=== PATIENT | female | born 1965 | race Caucasian/White ===

== ENCOUNTER 2017-04-16 18:56 | Emergency (ER) | payer OTHER ==
[2017-04-16 19:02] VITALS: BP 140/73
[2017-04-16] MEDS ORDERED: HYDROcod/ACETAM 5/325 MG TABLET PO STA (19:24)
--- NOTE | 2017-04-16 19:26 | ED Physician Documentation ---
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 She has no history of issues with that shoulder before. No other injuries.) Review of Systems Constitutional: reports: Reviewed and negative Nose: reports: Reviewed and negative Cardiac: reports: Reviewed and negative PD PAST MEDICAL HISTORY - Past Medical History Past Medical History: No - Past Surgical History Past Surgical History: No - Present Medications Home Medications: Ambulatory Orders Medication Instructions Recorded Confirmed HYDROcod/ACETAM 5/325 [Tamiment 5/325] 1 - 2 ea PO Q6H PRN #15 tablet 04/16/17 - Allergies Allergies/Adverse Reactions: Allergies Allergy/AdvReac Type Severity Reaction Status Date / Time codeine Allergy Unknown Verified 04/16/17 19:02 - Social History Does the pt smoke?: No Smoking Status: Never smoker Does the pt drink ETOH?: Yes Does the pt have substance abuse?: No - POLST Patient has POLST: No PD ED PE NORMAL - Vitals Vital signs reviewed: Yes - General General: Alert and oriented X 3, No acute distress - Neck Neck: Supple, no meningeal sign, No bony TTP - Extremities Extremities: Other (Right shoulder is mildly tender posteriorly and over the top , she is able to abduct to 90 actively, no better passively.) - Neuro Neuro: Alert and oriented X 3, Normal speech - Psych Psych: Normal mood, Normal affect Results - Vitals Vitals: Vital Signs - 24 hr 04/16/17 18:59 Temperature 36.4 C L Heart Rate 83 Respiratory 18 Rate Blood Pressure 140/73 H O2 Saturation 99 Oxygen O2 Source Room air - Rads (name of study) 3v R shoulder Radiology: EMP read contemporaneously (normal) Departure - Departure Disposition: 01 Home, Self Care Clinical Impression: Contusion of right shoulder Qualifiers: Encounter type: initial encounter Qualified Code(s): S40.011A - Contusion of right shoulder, initial encounter Condition: Good Record reviewed to determine appropriate education?: Yes Instructions: ED Sprain Shoulder Follow-Up: [facility] [Provider Group] - Within 1 week Prescriptions: HYDROcod/ACETAM 5/325 [Tamiment 5/325] 1 - 2 ea PO Q6H PRN #15 tablet PRN Reason: Pain Comments: Your blood pressure was elevated today on check into the emergency department. This does not mean that you have hypertension, it is a common phenomenon to come to the emergency department and have elevated blood pressure. I recommend that you see your primary care physician within the week to have it rechecked when you are feeling better. Do not drink or drive while taking narcotic pain medication. Note that many narcotic pain relievers also contain Tylenol/acetaminophen. Please ensure that your total dose of acetaminophen from all sources does not exceed 3 g (3000 mg) per day. You may get constipated while on this medication. Take a stool softener such as Colace twice a day while you are on it. Also add an nrmo-pow-[id number] laxative such as senna or MiraLAX on any day that you do not have a bowel movement. If you received a narcotic pain medication or sedative while in the emergency department, do not drive for the next 24 hours. Forms: Activity restrictions Discharge Date/Time: 04/16/17 19:56
--- NOTE | 2017-04-16 20:05 | XRAY Report ---
EXAM: RIGHT SHOULDER RADIOGRAPHY EXAM DATE: 04/16/2017 07:41 PM. CLINICAL HISTORY: Fall into door. Right shoulder pain. COMPARISON: None. TECHNIQUE: 3 views. FINDINGS: Bones: Old fifth rib fracture noted. No acute fractures identified. Joints: The glenohumeral and acromioclavicular joints are normal. Soft tissues: The visualized hemithorax is unremarkable. No soft tissue swelling. IMPRESSION: Normal shoulder radiography. [facility] Referring Provider Line: [phone] SITE ID: [id number]
== END 2017-04-16 19:56 | disposition home or self-care (01) ==
LOC: ED 18:56
DX: S40.011A Contusion of right shoulder, initial encounter (principal); X50.9XXA Other and unspecified overexertion or strenuous movements or postures, initial encounter; Y99.0 Civilian activity done for income or pay; R03.0 Elevated blood-pressure reading, without diagnosis of hypertension
CPT/HCPCS: 1040M; 73030; 99283; A9270

== ENCOUNTER 2017-05-02 09:10 | Emergency (ER) | payer OTHER ==
[2017-05-02] MEDS ORDERED: KETOROLAC 60 MG/2 ML VIAL IM STA (10:01)
[2017-05-02] MEDS ORDERED: LIDOCAINE PATCH 5% TOP STA (10:01)
[2017-05-02] MEDS ORDERED: DEXAMETHASONE 10 MG/ML VIAL PO STA (10:01)
--- NOTE | 2017-05-02 10:06 | ED Physician Documentation ---
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 hurting R shoulder seen in ER and had neg shoulder xrays dx shoulder sprain referred to ortho josi feels maybe a rotator cuff injury and awaiting L&I approval for MRI to ER today for acute worsening of R shoulder pain rad to R scapula / posterior rib region and burning throbbing pain down right arm to 3rd and 4th finger no fever cough CP abd pain (diff than her usual IBS discomfort) Review of Systems Constitutional: denies: Fever, Chills Cardiac: denies: Chest pain / pressure Respiratory: denies: Cough GI: denies: Abdominal Pain, Nausea, Vomiting Musculoskeletal: reports: Extremity pain, Joint pain Neurologic: denies: Focal weakness, Numbness Endocrine: denies: Easy bruising / bleeding Immunocompromised: denies: Immunocompromised PD PAST MEDICAL HISTORY - Past Surgical History Past Surgical History: No - Present Medications Home Medications: Ambulatory Orders Medication Instructions Recorded Confirmed Lidocaine Patch 5% [Lidoderm Patch] 1 each TOP DAILY PRN #10 patch 05/02/17 predniSONE [Deltasone] 20 mg PO [id number] #21 tab 05/02/17 - Allergies Allergies/Adverse Reactions: Allergies Allergy/AdvReac Type Severity Reaction Status Date / Time codeine Allergy Unknown Verified 05/02/17 09:22 - Social History Does the pt smoke?: No Smoking Status: Never smoker Does the pt drink ETOH?: Yes Does the pt have substance abuse?: No - POLST Patient has POLST: No PD ED PE NORMAL - Vitals Vital signs reviewed: Yes - General General: Alert and oriented X 3 - HEENT HEENT: PERRL - Neck Neck: Supple, no meningeal sign - Cardiac Cardiac: RRR - Respiratory Respiratory: No respiratory distress, Clear bilaterally - Abdomen Abdomen: Soft, Non tender - Extremities Extremities: Other (TTP R trap region with mm spasm and limited ROM, no shingles rash, tender to palapate entire shoulder, pain with ROM as well, MSV intact - see neuro exam) - Neuro Neuro: Alert and oriented X 3, No motor deficit, No sensory deficit, Other ( bicpe tricep OK thumbs up manager cost finger ABD wrist ext all intact but moise finger ABD and wrist ext aggrevate the pain down her arm, ) Results - Vitals Vitals: Vital Signs - 24 hr 05/02/17 05/02/17 09:18 10:56 Temperature 37.1 C 36.8 C Heart Rate 81 75 Respiratory 18 20 Rate Blood Pressure 156/68 H 129/68 O2 Saturation 100 100 Oxygen O2 Source Room air - Rads (name of study) cxr Radiology: See rad report (healed R 6th rib fx (where pt is tender) LLL atelectais) cspine Radiology: See rad report (mod degen changes scoliosis C7T1) Departure - Departure Disposition: 01 Home, Self Care Clinical Impression: Radiculopathy affecting upper extremity Rib fracture Qualifiers: Encounter type: initial encounter Rib fracture type: single rib Fracture type: closed Laterality: right Qualified Code(s): S22.31XA - Fracture of one rib, right side, initial encounter for closed fracture Condition: Good Instructions: ED Fx Rib, ED Cervical Radiculopathy Follow-Up: [facility] [Provider Group] (for continued care) Prescriptions: Lidocaine Patch 5% [Lidoderm Patch] 1 each TOP DAILY PRN #10 patch PRN Reason: Pain predniSONE [Deltasone] 20 mg PO [id number] #21 tab Comments: The pain down your arm is likely from a pinched nerve - could be pinched in your neck or more likely as it course through the shoulder If the pain down your arm persists a MRI would be very useful so hopefully L&I will approve it It also looks like you may have broken a rib when you fell - right rub number 6 - but it has healed I have prescribed medications to ease your pain. Even if it hurts you need to take several big breaths every hour to fill your lungs with fresh air and prevent collapse or infection The steroids are to ease the nerve pain The lidocaine patch is for your back. You can also take one or two extra strength tylenol every 8 hours - don't take every day for more than a week
--- NOTE | 2017-05-02 11:10 | XRAY Report ---
EXAM: CHEST RADIOGRAPHY EXAM DATE: 05/02/2017 10:26 AM. CLINICAL HISTORY: Right posterior rib pain. COMPARISON: None. TECHNIQUE: 2 views. FINDINGS: Lungs/Pleura: Elongated left lower lobe opacity. No pneumothorax or pleural effusion. Mediastinum: Heart and mediastinal contours are unremarkable. Other: Old healed left sixth rib fracture. No displaced right rib fracture evident. Mild scoliosis. Gallbladder fossa surgical clips. IMPRESSION: 1. Left lower lobe atelectasis. 2. Old, healed left sixth rib fracture. [facility] Referring Provider Line: [phone] SITE ID: [id number]
--- NOTE | 2017-05-02 11:13 | XRAY Report ---
EXAM: CERVICAL SPINE RADIOGRAPHY EXAM DATE: 05/02/2017 10:26 AM. CLINICAL HISTORY: R arm radiculopathy. Fall at work 04/16/2017. COMPARISONS: None. TECHNIQUE: 3 views. FINDINGS: Alignment: 9 degree convex right cervicothoracic scoliosis. Straightening of normal cervical lordosis with mild upper cervical kyphosis. Bones: The cervical vertebral bodies and posterior elements are well visualized from the skull base t hrough C6-C7. C7-T1 level not well demonstrated due to patient's shoulders. No fractures or bone lesions. Disks: Moderate loss of disk space height at C3-C4 through C6-C7 levels. Facets: Normally aligned. Soft Tissues: Probable tortuous thoracic aorta. IMPRESSION: 1. Moderate cervical spine degenerative changes. 2. Scoliosis. 3. C7-T1 level not well demonstrated due to patient's shoulders. Consider swimmer's view. [facility] Referring Provider Line: [phone] SITE ID: [id number]
[2017-05-02] MEDS ORDERED: oxyCODONE 5 MG TABLET PO STA (12:23)
[2017-05-02 12:24] VITALS: BP 131/82
== END 2017-05-02 12:17 | disposition home or self-care (01) ==
LOC: ED 09:10
DX: M54.12 Radiculopathy, cervical region (principal); S22.31XA Fracture of one rib, right side, initial encounter for closed fracture; W18.39XA Other fall on same level, initial encounter; Y99.0 Civilian activity done for income or pay
CPT/HCPCS: 71046; 72040; 96372; 99283; A9270

== ENCOUNTER 2017-05-18 15:05 | Outpatient (CLI) | payer OTHER ==
--- NOTE | 2017-05-18 22:30 | MRI Preliminary Report ---
Exam: MRI SHOULDER RT W/O IMPRESSION: 1. Moderate supraspinatus tendinopathy with full thickness partial with tear extending obliquely thro ugh the central and posterior fibers. 2. Mild infraspinatus tendinopathy with minimal partial thickness intrasubstance tearing. 3. Mild subscapularis atrophy. 4. Degenerative fraying posterior superior labrum. 5. Mild subacromial subdeltoid bursitis. 6. Mild to moderate acromioclavicular degenerative change. Osteophytes may contribute to symptoms of impingement. [facility] MUSCULOSKELETAL RADIOLOGY SECTION SITE ID: [id number]
--- NOTE | 2017-05-20 10:25 | MRI Report ---
EXAM: RIGHT SHOULDER MRI WITHOUT CONTRAST EXAM DATE: 05/18/2017 04:04 PM. CLINICAL HISTORY: Right shoulder pain. COMPARISON: Radiographs 04/16/2017. TECHNIQUE: Multiplanar, multisequence T1-weighted and fluid-sensitive sequences of the shoulder witho ut contrast. Other: None. FINDINGS: Acromioclavicular Region: The acromion is type II. Mild to moderate degenerative change at the joint. Inferiorly directed osteophytes result in mass effect on the supraspinatus myotendinous junction. Th e coracoacromial and coracoclavicular ligaments are intact. Mild subacromial/subdeltoid bursal fluid. Glenohumeral Region: No subluxation. No effusion or loose bodies. Shallow partial-thickness cartilage loss. The glenohumeral ligaments and joint capsule are unremarkable. Bone Marrow: No fracture. A 0.7 cm T1 hypointense and fluid sensitive hyperintense focus present in t he proximal aspect humeral diaphysis. No adjacent bone marrow edema. This may be due to a benign shannan ngioma or enchondroma. Labrum: Degenerative fraying posterosuperior aspect. No discrete fluid-filled tear visualized on this non-arthrographic study. Musculature/Rotator Cuff: Moderate supraspinatus tendinopathy with bursal surface fraying. Full-thick ness partial width tear extends obliquely from the insertion of the central fibers to the myotendinou s junction at the posterior fibers. This involves a region measuring 1.9 x 1.8 cm. Mild infraspinatus tendinopathy with bursal surface fraying and subtle partial thickness intrasubstan ce tearing at the insertion of the anterior and central fibers. Teres minor tendon is intact. Mild subscapularis tendinopathy. No fatty atrophy. Minimal edema at the supraspinatus myotendinous junction. Biceps Tendon: The long head of the biceps tendon and biceps sam are intact. Other: The subcutaneous tissues are unremarkable. IMPRESSION: 1. Moderate supraspinatus tendinopathy with full thickness partial width tear extending obliquely thr ough the central and posterior fibers. 2. Mild infraspinatus tendinopathy with minimal partial thickness intrasubstance tearing. 3. Mild subscapularis tendinopathy. 4. Degenerative fraying posterosuperior labrum. 5. Mild subacromial-subdeltoid bursitis. 6. Mild to moderate acromioclavicular degenerative change. Osteophytes may contribute to symptoms of impingement. [facility] MUSCULOSKELETAL RADIOLOGY SECTION Referring Provider Line: [phone] SITE ID: [id number]
== END 2017-05-18 15:06 | disposition home or self-care (01) ==
LOC: DI 15:05
PROVIDERS: ATTEND Orthopaedic Surgery
DX: M75.101 Unspecified rotator cuff tear or rupture of right shoulder, not specified as traumatic (principal); M75.51 Bursitis of right shoulder; M19.011 Primary osteoarthritis, right shoulder

== ENCOUNTER 2017-08-20 06:08 | Day surgery (SDC) | payer OTHER ==
[2017-08-20] MEDS ORDERED: ACETAMINOPHEN 1,000 MG/100 ML 100 ML IV ONE (06:36)
[2017-08-20] MEDS ORDERED: ceFAZolin 2 GM/50 ML 2 GM/50 ML BAG IV ONE (06:36)
[2017-08-20] MEDS ORDERED: CELECOXIB 100 MG CAPSULE PO ONE (06:38)
[2017-08-20 06:57] LABS: HCG UR QUAL NEGATIVE
[2017-08-20] MEDS ORDERED: LACTATED RINGERS 1,000 ML IV ONE ×2 (07:23→10:05)
[2017-08-20] MEDS ORDERED: BUPIVACAINE 0.5% PF 30 ML VIAL ONE (08:08)
[2017-08-20] MEDS ORDERED: LIDOCAINE 1%-EPI 1:100000 30 ML MDV ONE (08:09)
[2017-08-20] MEDS ORDERED: EPINEPHrine 1 MG/ML AMP ONE (08:09)
[2017-08-20] MEDS ORDERED: MIDAZOLAM 2 MG/2 ML VIAL IVP ONE (08:30)
[2017-08-20] MEDS ORDERED: ONDANSETRON 4 MG/2 ML VIAL IVP ONE (08:30)
[2017-08-20] MEDS ORDERED: ePHEDrine 50 MG/ML AMP IVP ONE (08:30)
[2017-08-20] MEDS ORDERED: SUCCINYLCHOLINE 200 MG/10 ML VIAL IVP ONE (08:30)
[2017-08-20] MEDS ORDERED: fentaNYL 250 MCG/5 ML VIAL IVP ONE (08:30)
[2017-08-20] MEDS ORDERED: SODIUM CHLORIDE 0.9% 10 ML VIAL IV ONE (08:30)
[2017-08-20] MEDS ORDERED: KETOROLAC 30 MG/ML VIAL IVP ONE (08:30)
[2017-08-20] MEDS ORDERED: PHENYLEPHRINE 10 MG/ML VIAL IV ONE (08:30)
[2017-08-20] MEDS ORDERED: LIDOCAINE 2% 50 ML MDV IV ONE (08:30)
[2017-08-20] MEDS ORDERED: DEXAMETHASONE 4 MG/ML VIAL IVP ONE (08:30)
[2017-08-20] MEDS ORDERED: PROPOFOL 200 MG/20 ML VIAL IVP ONE (08:30)
[2017-08-20] MEDS ORDERED: ROCURONIUM 50 MG/5 ML VIAL IVP ONE (08:30)
[2017-08-20] MEDS ORDERED: LIDOCAINE 1%-EPI 1:100000 20 ML MDV SUBQ ONE ×2 (08:47)
[2017-08-20] MEDS ORDERED: BUPIVACAINE 0.5% PF 30 ML VIAL INFIL ONE ×2 (08:48)
[2017-08-20] MEDS ORDERED: HYDROmorphone 1 MG/ML CARPUJECT ONE (10:42)
[2017-08-20] MEDS: fentaNYL 100 MCG/2 ML VIAL ONE ×3 (10:59→11:17)
[2017-08-20] MEDS ORDERED: ONDANSETRON 4 MG/2 ML VIAL ONE (11:04)
[2017-08-20] MEDS ORDERED: oxyCOD/ACETAMIN 5 MG/325 MG TABLET PO ONE (12:55)
[2017-08-20 13:15] VITALS: BP 122/66
--- NOTE | 2017-08-20 18:48 | OPERATIVE REPORT ---
DATE OF SERVICE: 08/20/2017 Physician: Myra Mix MD DATE OF SURGERY: 08/20/2017. PREOPERATIVE DIAGNOSIS: Right shoulder rotator cuff tear and impingement syndrome. POSTOPERATIVE DIAGNOSIS: Right shoulder rotator cuff tear and impingement syndrome. PROCEDURE PERFORMED: Right shoulder exam under anesthesia, arthroscopy, subacromial decompression, mini open rotator cuff repair. OPERATING SURGEON: Myra Mix M.D. ANESTHESIA: General and interscalene block by [place]. INDICATIONS FOR SURGERY: The patient is a 51-year-old female with a painful right shoulder post injury and a documented rotator cuff injury with suspected full-thickness tear. She has failed nonoperative treatment. Recommendation is for surgical treatment and repair. FINDINGS AT SURGERY: The patient's exam under anesthesia was unremarkable. Her arthroscopic exam revealed a full-thickness tear involving the complete extent of the supraspinatus insertion. The glenohumeral surfaces were intact, the biceps tendon normal, subscapularis intact, the remaining rotator cuff intact. DESCRIPTION OF OPERATIVE PROCEDURE: The patient was taken to the operating room, given a general anesthetic and an interscalene block. She was positioned in beach chair. The shoulder was isolated with drapes and sterilely prepped and draped in standard fashion. After surgical timeout, the patient's arthroscopy was undertaken using a posterior acromial portal performing a complete inspection of the glenohumeral joint and then introducing a separate shaver from an anterior portal established with a scalpel incision of skin only and insertion of a blunt obturator into the shoulder, followed by the shaver and debridement of the undersurface of the rotator cuff. The extent of the tear was defined and the footprint of the rotator cuff insertion was debrided down to bleeding bone. A subacromial decompression was performed after inserting the scope in the subacromial space and utilizing the shaver to decompress the space and expose the bursal side of the cuff tear. Following this, the instruments were withdrawn. A small 5 cm incision was made based on the anterior aspect of the acromion, taken through skin and subcutaneous tissue, exposing the anterior acromion, resecting the anterior aspect of the acromion and performing a decompression with a rasp, after which the rotator cuff tear was mobilized and freed of bursal tissues, the footprint prepared and a 2-row repair was undertaken using Fastin anchors at the junction of the articular cartilage. A single Fastin anchor was placed and then on the lateral aspect of the humerus placing 2 Versalok anchors and locking down in a mattress fashion and recreating a double row repair with very good apposition of tissue to bone. Following this, the area was flushed and closure was with FiberWire repair of anterior deltoid, Vicryl repair of subcutaneous tissue, and Monocryl closure of skin. Sterile dressings were applied. The patient was placed in a sling and taken to the recovery room in stable condition. ESTIMATED BLOOD LOSS: Minimal. COMPLICATIONS: None. SPONGE AND NEEDLE COUNTS: Correct. TD: 08/20/2017 13:57
== END 2017-08-20 06:09 | disposition home or self-care (01) ==
LOC: SDS 06:08
PROVIDERS: ATTEND Orthopaedic Surgery
PROC: 0RBJ4ZZ Excision of Right Shoulder Joint, Percutaneous Endoscopic Approach (ICD-10-PCS; principal; 2017-08-20 07:30)
PROC: 0LQ10ZZ Repair Right Shoulder Tendon, Open Approach (ICD-10-PCS; 2017-08-20 07:30)
DX: S46.011A Strain of muscle(s) and tendon(s) of the rotator cuff of right shoulder, initial encounter (principal); M75.41 Impingement syndrome of right shoulder
CPT/HCPCS: 23412; 29822; 81025; A9270; C1713; J0131; J0330; J0690; J1170; J3010; J7120

== ENCOUNTER 2018-02-13 09:17 | Emergency (ER) | payer MEDICAID ==
--- NOTE | 2018-02-13 09:47 | ED Physician Documentation ---
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 she started having pain across her upper chest last night - worse with palpation and any movement but also with nausea and SO now paininto upper back as well minimal abd pain no fever no cough no leg swelling no recent travel non smoker fhx CAD but she has no HTN HLD DM or known CAD at age 38 she had a neg cardiac work up Review of Systems Constitutional: denies: Fever Cardiac: reports: Chest pain / pressure Respiratory: reports: Dyspnea GI: reports: Nausea Musculoskeletal: reports: Back pain Neurologic: denies: Focal weakness, Numbness Endocrine: denies: Easy bruising / bleeding Immunocompromised: denies: Immunocompromised PD PAST MEDICAL HISTORY - Past Medical History Cardiovascular: Murmur Respiratory: None Endocrine/Autoimmune: None GI: None HEENT: None Psych: Anxiety Musculoskeletal: Osteoarthritis, Other Derm: None - Past Surgical History Past Surgical History: No 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 CLIENT SERVICES: Tubal ligation HEENT: Tonsil/Adenoidectomy, Other - Present Medications Home Medications: Ambulatory Orders Medication Instructions Recorded Confirmed Lidocaine Patch 5% [Lidoderm Patch] 1 each TOP DAILY PRN #10 patch 05/02/17 predniSONE [Deltasone] 20 mg PO [id number] #21 tab 05/02/17 Cyclobenzaprine [Flexeril] 10 mg PO TID PRN #20 tablet 02/13/18 Indomethacin [Indocin] 25 mg PO BIDWM PRN #20 capsule 02/13/18 Lidocaine Patch 5% [Lidoderm Patch] 1 patch TOP DAILY PRN #10 patch 02/13/18 - Allergies Allergies/Adverse Reactions: Allergies Allergy/AdvReac Type Severity Reaction Status Date / Time codeine Allergy Unknown Verified 02/13/18 09:26 - Social History Does the pt smoke?: No Smoking Status: Never smoker Does the pt drink ETOH?: Yes Does the pt have substance abuse?: No - Immunizations Immunizations are current?: Yes - POLST Patient has POLST: No PD ED PE NORMAL - Vitals Vital signs reviewed: Yes - General General: Alert and oriented X 3, Other (anxious holding her chest) - Neck Neck: Supple, no meningeal sign - Cardiac Cardiac: RRR, No murmur, Other (very TTP anterior chest wall, no crepitus or rash) - Respiratory Respiratory: No respiratory distress, Clear bilaterally - Abdomen Abdomen: Soft, Non tender, Other (no pulsatile mass) - Back Back: Other (TTP upper back, hurts to move, no rash) - Derm Derm: Normal color - Extremities Extremities: No deformity, No edema, No calf tenderness / cord - Neuro Neuro: Alert and oriented X 3 Eye Opening: Spontaneous Motor: Obeys Commands Verbal: Oriented GCS Score: 15 Results - Vitals Vitals: Vital Signs - 24 hr 02/13/18 02/13/18 02/13/18 09:24 10:33 10:34 Temperature 37.0 C Heart Rate 90 87 83 Respiratory 16 22 17 Rate Blood Pressure 152/78 H 129/58 L 136/80 H O2 Saturation 100 98 100 Oxygen O2 Source Room air - EKG (time done) 0932 Rate: Rate (enter#) (90) Rhythm: NSR Intervals: Normal [place], QRS normal. No: Prolonged QT QRS: Poor R wave progression Ischemia: Non specific changes (inferior) - Labs Labs: Laboratory Tests 02/13/18 02/13/18 02/13/18 09:30 09:30 09:30 WBC 4.7 L RBC 4.80 Hgb 14.6 Hct 42.5 MCV 88.6 MCH 30.4 MCHC 34.4 RDW 13.0 Plt Count 356 MPV 7.2 L Neut # (Auto) 1.8 Lymph # (Auto) 1.9 [place] # (Auto) 0.8 Eos # (Auto) 0.1 Baso # (Auto) 0.0 Absolute Nucleated RBC 0.00 Nucleated RBC % 0.0 Sodium 139 Potassium 3.7 Chloride 104 Carbon Dioxide 26 Anion Gap 9.0 BUN 7 Creatinine 0.8 Estimated GFR (MDRD) 75 L Glucose 103 H Calcium 9.7 Total Bilirubin 0.8 AST 21 ALT 17 Alkaline Phosphatase 71 Troponin I < 0.04 Total Protein 8.2 Albumin 4.7 Globulin 3.5 Albumin/Globulin Ratio 1.3 Lipase 27 PD MEDICAL DECISION MAKING - ED course ED course: BP R 136/80 BP L 129/88 CXR no acute process - aortic knob is tight and no cap or effusion EKG s ischemia neg trop after sx all night no risk factors for PE and no lg swelling based on hx and exam and work up feel ACS PE dissection unlikely pt very tender to palpate and just increased her work so likely muscular will dc Departure - Departure Disposition: 01 Home, Self Care Clinical Impression: Chest wall pain Condition: Good Instructions: ED Strain Chest Wall Prescriptions: Cyclobenzaprine [Flexeril] 10 mg PO TID PRN #20 tablet PRN Reason: Spasms Indomethacin [Indocin] 25 mg PO BIDWM PRN #20 capsule PRN Reason: Pain Lidocaine Patch 5% [Lidoderm Patch] 1 patch TOP DAILY PRN #10 patch PRN Reason: pain Comments: The tests were all very reassuring - based on the history, the exam, the EKG, the xray and the blood work it does not seem you have a heart attack, an aneurysm, a blood clot in your lung or a collapsed lung So I think it is safe for you to go home and I have prescribed several medications to help ease your symptoms Forms: Activity restrictions
[2018-02-13] MEDS ORDERED: KETOROLAC 60 MG/2 ML VIAL IVP STA (09:54)
[2018-02-13 10:00] LABS: BASOPHILS % (AUTO) 0.9 %; EOSINOPHILS # (AUTO) 0.1 10^3/uL (0.0-0.7); EOSINOPHILS % (AUTO) 2.1 %; HGB - HEMOGLOBIN 14.6 g/dL (12.0-16.0); LYMPHOCYTES # (AUTO) 1.9 10^3/uL (1.5-3.5); LYMPHOCYTES % (AUTO) 40.3 %; MEAN CORPUSCULAR HEMOGLOBIN 30.4 pg (27.0-31.0); MEAN CORPUSCULAR HGB CONC 34.4 g/dL (32.0-36.0); MEAN CORPUSCULAR VOLUME 88.6 fL (81.0-99.0); MEAN PLATELET VOLUME 7.2 fL (7.9-10.8); MONOCYTES # (AUTO) 0.8 10^3/uL (0.0-1.0); MONOCYTES % (AUTO) 17.8 %; NEUTROPHILS # (AUTO) 1.8 10^3/uL (1.5-6.6); NEUTROPHILS % (AUTO) 38.9 %; PLT - PLATELET COUNT 356 10^3/uL (130-450); WHITE BLOOD COUNT 4.7 x10^3/uL (4.8-10.8)
[2018-02-13 10:09] LABS: ALBUMIN 4.7 g/dL (3.2-5.5); ALBUMIN/GLOBULIN RATIO 1.3 (1.0-2.2); BILIRUBIN,TOTAL 0.8 mg/dL (0.2-1.0); CALCIUM 9.7 mg/dL (8.5-10.3); CREATININE 0.8 mg/dL (0.4-1.0); TOTAL PROTEIN 8.2 g/dL (6.7-8.2)
--- NOTE | 2018-02-13 10:23 | XRAY Report ---
Reason: cp Procedure Date: 02/13/2018 Accession Number: [id number] / [id number] Procedure: XR - Chest 2 View X-Ray CPT Code: 09648 FULL RESULT: EXAM: CHEST RADIOGRAPHY EXAM DATE: 02/13/2018 10:04 AM. CLINICAL HISTORY: Chest pain COMPARISON: CHEST 2 VIEW 05/02/2017 10:03 AM. TECHNIQUE: 2 views. FINDINGS: Lungs/Pleura: Mild bibasal opacity, may reflect atelectasis or scarring. No significant pleural effusion or evidence of pneumothorax. Mediastinum: Heart and mediastinal contours are unremarkable. Other: Old healed left sixth rib fracture. Suture anchors at the right humeral head. Right upper quadrant surgical clips. Mild scoliosis. IMPRESSION: No definite acute cardiopulmonary abnormality. Mild bibasal opacity, may reflect atelectasis or scarring. [facility]
[2018-02-13] MEDS ORDERED: LIDOCAINE PATCH 5% TOP STA (10:49)
[2018-02-13] MEDS ORDERED: oxyCODONE 5 MG TABLET PO STA (10:49)
[2018-02-13 11:23] VITALS: BP 130/85
== END 2018-02-13 11:23 | disposition home or self-care (01) ==
LOC: ED 09:17
DX: R07.89 Other chest pain (principal)
CPT/HCPCS: 36415; 71046; 80053; 83690; 84484; 85025; 93005; 96374; 99283; 99284; A9270

== ENCOUNTER 2018-03-10 14:47 | Outpatient (CLI) | payer MEDICAID ==
--- NOTE | 2018-03-12 09:13 | Mammography Report ---
Reason: SCREENING MAMMOGRAM FOR BREAST CANCER Procedure Date: 03/10/2018 Accession Number: [id number] / [id number] Procedure: MGN - Screening Mammo Dig Bilat CPT Code: FULL RESULT: EXAM: Screening Mammo Dig Bilat DATE: 03/10/2018 3:06 PM CLINICAL HISTORY: Screening. No reported personal or family history of breast cancer. TECHNIQUE: Bilateral CC and MLO views were obtained. COMPARISON: Baseline exam. FINDINGS: The breasts demonstrate diffuse fatty replacement bilaterally. Bilateral breasts: There are no suspicious masses, calcifications or areas of distortion. IMPRESSION: Negative examination RECOMMENDATION: Routine annual screening unless otherwise clinically indicated. BI-RADS CATEGORY 1: Negative STANDARD QUALIFYING STATEMENTS: 1. This examination was reviewed with the aid of Computer-Aided Detection (CAD). 2. A negative or benign imaging report should not preclude biopsy if clinically suspicious findings are present. 3. Dense breasts may obscure an underlying neoplasm. 4. This examination was reviewed without the aid of 3D breast imaging (tomosynthesis).
== END 2018-03-10 14:48 | disposition home or self-care (01) ==
LOC: DI.N 14:47
PROVIDERS: ATTEND Physician Assistant Medical
DX: Z12.31 Encounter for screening mammogram for malignant neoplasm of breast (principal)
CPT/HCPCS: 77067

== ENCOUNTER 2018-05-19 18:55 | Emergency (ER) | payer MEDICAID ==
[2018-05-19] MEDS ORDERED: oxyCODONE 5 MG TABLET PO STA (19:21)
[2018-05-19] MEDS ORDERED: GABAPENTIN 100 MG CAPSULE PO STA (19:21)
--- NOTE | 2018-05-19 19:24 | ED Physician Documentation ---
History of Present Illness - Stated complaint Stated Complaint: BK PX - Chief complaint Chief Complaint: Ext Problem - History obtained from History obtained from: Patient - History of Present Illness Timing: Other (This is a 52-year-old woman whose been having ongoing problems with the right shoulder due to a work-related incident. She had what sounds like may be a SLAP repair and then after that found to have recurrent issues based on I MRI. Since then she has had progressive pain of the clavicles, upper back, neck, left shoulder. At the age of 20 she was diagnosed with fibromyalgia but there was no subsequent diagnosis of that. Pain is worsening, its diffuse.) Review of Systems Constitutional: reports: Fatigue. 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: Tubal ligation HEENT: Tonsil/Adenoidectomy, Other - Present Medications Home Medications: Ambulatory Orders Medication Instructions Recorded Confirmed Lidocaine Patch 5% [Lidoderm Patch] 1 each TOP DAILY PRN #10 patch 05/02/17 predniSONE [Deltasone] 20 mg PO [id number] #21 tab 05/02/17 Cyclobenzaprine [Flexeril] 10 mg PO TID PRN #20 tablet 02/13/18 Indomethacin [Indocin] 25 mg PO BIDWM PRN #20 capsule 02/13/18 Lidocaine Patch 5% [Lidoderm Patch] 1 patch TOP DAILY PRN #10 patch 02/13/18 Gabapentin [Neurontin] 300 mg PO TID #60 capsule 05/19/18 Naproxen 500 mg PO BID PRN #20 tablet 05/19/18 Oxycodone HCl/Acetaminophen 1 - 2 each PO Q6H PRN #14 tablet 05/19/18 [Percocet 5-325 mg Tablet] - Allergies Allergies/Adverse Reactions: Allergies Allergy/AdvReac Type Severity Reaction Status Date / Time codeine Allergy Unknown Verified 05/19/18 19:02 - Social History Does the pt smoke?: No Smoking Status: Never smoker Does the pt drink ETOH?: Yes Does the pt have substance abuse?: No - Immunizations Immunizations are current?: Yes - POLST Patient has POLST: No PD ED PE NORMAL - Vitals Vital signs reviewed: Yes - General General: Alert and oriented X 3, No acute distress - HEENT HEENT: PERRL, EOMI - Neck Neck: Supple, no meningeal sign, No bony TTP - Cardiac Cardiac: RRR, No murmur - Respiratory Respiratory: No respiratory distress, Clear bilaterally - Abdomen Abdomen: Non tender - Extremities Extremities: Other (There is a well-healed surgical incision over the right shoulder. She is severely limited range of motion in the due to pain. She has somewhat limited range of motion in the left shoulder. She has diffuse muscular tenderness that is typical for fibromyalgia in the trigger points of the upper back, inner thighs etc.) - Neuro Neuro: Alert and oriented X 3, No motor deficit Results - Vitals Vitals: Vital Signs - 24 hr 05/19/18 18:59 Temperature 36.4 C L Heart Rate 89 Respiratory 16 Rate Blood Pressure 142/77 H O2 Saturation 98 Oxygen O2 Source Room air PD MEDICAL DECISION MAKING - ED course ED course: This is a 52-year-old woman with chronic shoulder and neck pain but a lot of findings that would also be consistent with fibromyalgia. I encouraged her to follow-up with her primary care physician for potential evaluation to rheumatology and/or pain management. Departure - Departure Disposition: 01 Home, Self Care Clinical Impression: Radiculopathy affecting upper extremity, Fibromyalgia Condition: Good Record reviewed to determine appropriate education?: Yes Instructions: ED Neck Back Pain General, Fibromyalgia Follow-Up: Enzo Babb PA-C [Primary Care Provider] - Prescriptions: Gabapentin [Neurontin] 300 mg PO TID #60 capsule Naproxen 500 mg PO BID PRN #20 tablet PRN Reason: Pain Oxycodone HCl/Acetaminophen [Percocet 5-325 mg Tablet] 1 - 2 each PO Q6H PRN #14 tablet PRN Reason: pain Comments: Follow-up with your physician. Discuss the potential diagnosis of fibromyalgia and potential referral to pain management or rheumatology. Return for new or worsening symptoms. Your blood pressure was elevated today on check into the emergency department. This does not mean that you have hypertension, it is a common phenomenon to come to the emergency department and have elevated blood pressure. I recommend that you see your primary care physician within the week to have it rechecked when you are feeling better. Do not drink or drive while taking narcotic pain medication. Note that many narcotic pain relievers also contain Tylenol/acetaminophen. Please ensure that your total dose of acetaminophen from all sources does not exceed 3 g (3000 mg) per day. You may get constipated while on this medication. Take a stool softener such as Colace twice a day while you are on it. Also add an mhlm-xll-oceioke laxative such as senna or MiraLAX on any day that you do not have a bowel movement. If you received a narcotic pain medication or sedative while in the emergency de partment, do not drive for the next 24 hours. Forms: Activity restrictions
[2018-05-19 20:07] VITALS: BP 140/70
== END 2018-05-19 20:05 | disposition home or self-care (01) ==
LOC: ED 18:55
DX: M54.10 Radiculopathy, site unspecified (principal); M79.7 Fibromyalgia; R03.0 Elevated blood-pressure reading, without diagnosis of hypertension
CPT/HCPCS: 99283; A9270

== ENCOUNTER 2018-05-30 08:00 | Outpatient (CLI) | payer MEDICAID ==
[2018-05-30 13:02] LABS: BASOPHILS # (AUTO) 0.1 10^3/uL (0.0-0.1); BASOPHILS % (AUTO) 1.2 %; EOSINOPHILS # (AUTO) 0.1 10^3/uL (0.0-0.7); EOSINOPHILS % (AUTO) 2.4 %; HGB - HEMOGLOBIN 12.4 g/dL (12.0-16.0); LYMPHOCYTES # (AUTO) 1.8 10^3/uL (1.5-3.5); LYMPHOCYTES % (AUTO) 33.3 %; MEAN CORPUSCULAR HEMOGLOBIN 30.2 pg (27.0-31.0); MEAN CORPUSCULAR HGB CONC 33.7 g/dL (32.0-36.0); MEAN CORPUSCULAR VOLUME 89.6 fL (81.0-99.0); MEAN PLATELET VOLUME 7.6 fL (7.9-10.8); MONOCYTES % (AUTO) 18.1 %; NEUTROPHILS # (AUTO) 2.4 10^3/uL (1.5-6.6); PLT - PLATELET COUNT 314 10^3/uL (130-450); RED BLOOD COUNT 4.11 10^6/uL (4.20-5.40); RED CELL DISTRIBUTION WIDTH 12.9 % (12.0-15.0); WHITE BLOOD COUNT 5.3 x10^3/uL (4.8-10.8)
[2018-05-30 13:16] LABS: CALCIUM 8.7 mg/dL (8.5-10.3); CREATININE 0.5 mg/dL (0.4-1.0)
== END 2018-05-30 23:59 | disposition home or self-care (01) ==
LOC: LAB.N 08:00
PROVIDERS: ATTEND Physician Assistant Medical
DX: I10 Essential (primary) hypertension (principal); M47.22 Other spondylosis with radiculopathy, cervical region
CPT/HCPCS: 36415; 80048; 84443; 85025

== ENCOUNTER 2018-08-07 06:50 | Day surgery (SDC) | payer MEDICAID ==
[2018-08-07] MEDS ORDERED: LACTATED RINGERS 1,000 ML IV ONE (07:03)
[2018-08-07] MEDS ORDERED: fentaNYL 250 MCG/5 ML VIAL IVP ONE (08:06)
[2018-08-07] MEDS ORDERED: MIDAZOLAM 2 MG/2 ML VIAL IVP ONE (08:06)
[2018-08-07] MEDS ORDERED: ONDANSETRON 4 MG/2 ML VIAL IVP ONE (08:06)
[2018-08-07 09:22] VITALS: BP 115/62
== END 2018-08-07 06:51 | disposition home or self-care (01) ==
LOC: SDS 06:50
PROVIDERS: ATTEND Internal Medicine Gastroenterology
PROC: 0DBF8ZX Excision of Right Large Intestine, Via Natural or Artificial Opening Endoscopic, Diagnostic (ICD-10-PCS; 2018-08-07)
PROC: 0DBG8ZX Excision of Left Large Intestine, Via Natural or Artificial Opening Endoscopic, Diagnostic (ICD-10-PCS; principal; 2018-08-07 08:15)
DX: R19.7 Diarrhea, unspecified (principal); Z80.0 Family history of malignant neoplasm of digestive organs; I10 Essential (primary) hypertension; E78.00 Pure hypercholesterolemia, unspecified; R42 Dizziness and giddiness; E66.9 Obesity, unspecified
CPT/HCPCS: 45380; J3010; J7120

== ENCOUNTER 2018-08-14 16:20 | Emergency (ER) | payer MEDICAID ==
[2018-08-14 16:27] VITALS: BP 132/81
--- NOTE | 2018-08-14 16:35 | ED Physician Documentation ---
PD HPI HEENT - Stated complaint Stated Complaint: RT EAR PX - Chief complaint Chief Complaint: Heent - History obtained from History obtained from: Patient - History of Present Illness Timing - onset: How many days ago (3) Timing - duration: Days (3) Timing - details: Still present Location: Right ear Associated symptoms: Fever (low grade). No: Congestion, Headache - Additional information Additional information: The patient is a 52-year-old female who complains of right earache that started 3 days ago and has been getting progressively worse. She reports decreased hearing ability and low-grade fever. She denies any change in her chronic recurrent headaches. She denies cough, sore throat, nausea or vomiting. Review of Systems Constitutional: reports: Fever (low grade) Eyes: denies: Irritation Ears: reports: Ear pain (right) Nose: denies: Congestion Throat: denies: Sore throat Cardiac: denies: Chest pain / pressure Respiratory: denies: Dyspnea, Cough GI: denies: Abdominal Pain, Nausea, Vomiting : denies: Dysuria Skin: denies: Rash Musculoskeletal: denies: Neck pain Neurologic: reports: Headache (mild) PD PAST MEDICAL HISTORY - Past Medical History Cardiovascular: High cholesterol, Murmur Respiratory: None Endocrine/Autoimmune: None GI: None : Nocturia HEENT: Chronic sinusitis Psych: Anxiety Musculoskeletal: Osteoarthritis, Other Derm: None - Past Surgical History Past Surgical History: No General: Cholecystectomy, Colonoscopy Ortho: Rotator cuff repair /LINE FIXER: Tubal ligation HEENT: Tonsil/Adenoidectomy, Other - Present Medications Home Medications: Ambulatory Orders Medication Instructions Recorded Confirmed Gabapentin [Neurontin] 300 mg PO TID #60 capsule 05/19/18 08/06/18 Lisinopril 10 mg PO DAILY 08/06/18 08/06/18 Amox/Clav 875/125 [Augmentin] 1 each PO Q12H #14 tablet 08/14/18 - Allergies Allergies/Adverse Reactions: Allergies Allergy/AdvReac Type Severity Reaction Status Date / Time codeine Allergy Unknown Verified 08/14/18 16:26 - Social History Does the pt smoke?: No Smoking Status: Never smoker Does the pt drink ETOH?: Yes Does the pt have substance abuse?: No - Immunizations Immunizations are current?: Yes - POLST Patient has POLST: No PD ED PE NORMAL - Vitals Vital signs reviewed: Yes (normal) - General General: Alert and oriented X 3, Well developed/nourished - HEENT HEENT: Atraumatic, EOMI, Pharynx benign, Other (There is mild erythema of the right tympanic membrane, with fluid behind the TM. Left tympanic membrane is clear.) - Neck Neck: Supple, no meningeal sign, No adenopathy - Cardiac Cardiac: RRR - Respiratory Respiratory: No respiratory distress, Clear bilaterally - Abdomen Abdomen: Soft, Non tender - Derm Derm: No rash - Neuro Neuro: Alert and oriented X 3, No motor deficit, Normal speech Results - Vitals Vitals: Vital Signs - 24 hr 08/14/18 16:23 Temperature 37.3 C Heart Rate 85 Respiratory 14 Rate Blood Pressure 132/81 H O2 Saturation 99 Oxygen O2 Source Room air PD MEDICAL DECISION MAKING - ED course Complexity details: considered differential, d/w patient ED course: The patient's presentation is most consistent with right otitis media. There is no clinical evidence of meningitis, pharyngitis, or peritonsillar abscess. She is being discharged with prescription for Augmentin. I discussed with her the expected course of illness, antibiotic treatment and outpatient follow-up, as well as potentially worrisome signs or symptoms that should prompt reevaluation in the emergency department. Departure - Departure Disposition: 01 Home, Self Care Clinical Impression: Right otitis media Qualifiers: Otitis media type: serous Chronicity: acute Recurrence: not specified as recurrent Qualified Code(s): H65.01 - Acute serous otitis media, right ear Condition: Stable Instructions: ED Otitis Media Acute Adult Follow-Up: Enzo Babb PA-C [Primary Care Provider] - Prescriptions: Amox/Clav 875/125 [Augmentin] 1 each PO Q12H #14 tablet Comments: Take Augmentin twice daily as prescribed. You can use Tylenol or ibuprofen as needed for fever or discomfort. Follow-up with your primary physician within 2 weeks. Call to schedule an appointment. Return to the emergency department if increasing pain, or otherwise worsening symptoms. Discharge Date/Time: 08/14/18 16:40
== END 2018-08-14 16:40 | disposition home or self-care (01) ==
LOC: ED 16:20
DX: H65.01 Acute serous otitis media, right ear (principal)
CPT/HCPCS: 99283

== ENCOUNTER 2018-08-21 08:00 | Outpatient (CLI) | payer MEDICAID | END 2018-08-21 23:59 | disposition home or self-care (01) | LOC: LAB.N 08:00 | PROVIDERS: ATTEND Internal Medicine Gastroenterology | DX: R19.7 Diarrhea, unspecified (principal) | CPT/HCPCS: 36415; 82784; 83516 ==

== ENCOUNTER 2019-01-02 14:22 | Outpatient (CLI) | payer MEDICAID ==
[2019-01-02 18:31] LABS: BASOPHILS % (AUTO) 0.8 %; EOSINOPHILS # (AUTO) 0.1 10^3/uL (0.0-0.7); EOSINOPHILS % (AUTO) 2.2 %; HGB - HEMOGLOBIN 12.7 g/dL (12.0-16.0); LYMPHOCYTES # (AUTO) 1.9 10^3/uL (1.5-3.5); LYMPHOCYTES % (AUTO) 37.8 %; MEAN CORPUSCULAR HEMOGLOBIN 29.7 pg (27.0-31.0); MEAN CORPUSCULAR VOLUME 92.8 fL (81.0-99.0); MEAN PLATELET VOLUME 9.2 fL (7.9-10.8); MONOCYTES # (AUTO) 0.9 10^3/uL (0.0-1.0); MONOCYTES % (AUTO) 18.5 %; NEUTROPHILS # (AUTO) 2.1 10^3/uL (1.5-6.6); NEUTROPHILS % (AUTO) 40.5 %; PLT - PLATELET COUNT 334 10^3/uL (130-450); RED BLOOD COUNT 4.28 10^6/uL (4.20-5.40); RED CELL DISTRIBUTION WIDTH 12.1 % (12.0-15.0); WHITE BLOOD COUNT 5.1 x10^3/uL (4.8-10.8)
[2019-01-02 18:41] LABS: CALCIUM 9.5 mg/dL (8.5-10.3); CREATININE 0.6 mg/dL (0.4-1.0)
== END 2019-01-02 23:59 ==
LOC: LAB.N 14:22
PROVIDERS: ATTEND Physician Assistant Medical
DX: Z01.812 Encounter for preprocedural laboratory examination (principal)
CPT/HCPCS: 36415; 80048; 85025

== ENCOUNTER 2019-01-05 16:57 | Outpatient (CLI) | payer OTHER, MEDICAID ==
--- NOTE | 2019-01-06 15:29 | MRI Report ---
Reason: ROTATOR CUFF TEAR RIGHT Procedure Date: 01/05/2019 Accession Number: [id number] / [id number] Procedure: MRI - Shoulder RT W/O CPT Code: FULL RESULT: EXAM: RIGHT SHOULDER MRI WITHOUT CONTRAST EXAM DATE: 01/05/2019 06:00 PM. CLINICAL HISTORY: Right rotator cuff tear. Previous shoulder surgery. COMPARISON: Right shoulder MRI from 02/28/2018. TECHNIQUE: Multiplanar, multisequence T1-weighted and fluid-sensitive sequences of the shoulder without contrast. Other: None. FINDINGS: Some of the images are degraded due to technical artifact, especially at the superior medial aspect of the shoulder. Acromioclavicular Region: The acromion is small which may be from previous acromioplasty. Small effusion and mild osteoarthritis at the AC joint. The coracoacromial and coracoclavicular ligaments are intact. Small amount of fluid at the subacromial subdeltoid bursa which is less than before. Glenohumeral Region: No subluxation. No effusion or loose bodies. The articular cartilage is unremarkable. The glenohumeral ligaments and joint capsule are unremarkable. Bone Marrow: Post operative magnetic susceptibility artifacts due to metallic hardware at the superior aspect of the humeral head and lateral aspect of the proximal humeral metaphysis. No acute fracture or bone lesions. Labrum: The labrum is unremarkable on this nonarthrographic study. Musculature/Rotator Cuff: Evaluation of the rotator cuff tendons is technically limited due to technical artifact. There is a probable 8 mm full-thickness tear at the supraspinatus tendon (coronal images 10 and 11). No tendon retraction. There is infraspinatus tendinosis. The teres minor tendon is unremarkable. There is subscapularis tendinosis. Grade 3 atrophy of the supraspinatus muscle. Biceps Tendon: The long head of the biceps tendon and biceps sam are intact. Other: Multiple magnetic susceptibility artifacts within the subcutaneous fat at the superior and lateral aspects of the shoulder. IMPRESSION: 1. Technically limited exam due to magnetic susceptibility artifact and inhomogeneous fat suppression. 2. Probable full-thickness, partial width tear of the supraspinatus tendon. Infraspinatus and subscapularis tendinosis. Grade 3 atrophy of the supraspinatus muscle. 3. Postoperative changes from previous rotator cuff repair and acromioplasty. RADIA
== END 2019-01-05 16:58 | disposition home or self-care (01) ==
LOC: DI 16:57
PROVIDERS: ATTEND Orthopaedic Surgery Sports Medicine
DX: M75.101 Unspecified rotator cuff tear or rupture of right shoulder, not specified as traumatic (principal); M62.511 Muscle wasting and atrophy, not elsewhere classified, right shoulder; M75.91 Shoulder lesion, unspecified, right shoulder

== ENCOUNTER 2019-01-14 06:10 | Day surgery (SDC) | payer OTHER, MEDICAID ==
[2019-01-14] MEDS ORDERED: LACTATED RINGERS 1,000 ML IV ONE ×2 (06:22→08:57)
[2019-01-14] MEDS ORDERED: ACETAMINOPHEN 1,000 MG/100 ML 100 ML IV ONE ×2 (06:54→07:45)
[2019-01-14] MEDS ORDERED: BUPIVACAINE 0.25% PF 30 ML VIAL ONE (07:00)
[2019-01-14] MEDS ORDERED: EPINEPHrine 1 MG/ML AMP ONE (07:01)
[2019-01-14] MEDS ORDERED: BUPIVACAINE 0.5%-EPI 1:200000 PF 30 ML VIAL ONE (07:01)
[2019-01-14] MEDS ORDERED: CEFAZOLIN SODIUM IN 0.9 % NACL 2 GM/100 ML BAG IV ONE (07:07)
--- NOTE | 2019-01-14 07:12 | ANESTHESIA ---
Pre-Anesthesia VS, & Labs - Diagnosis Right Shoulder pain - Procedure Right shoulder arthroscopy Vital Signs: Temp Pulse Resp BP Pulse Ox 36.8 C 84 16 114/59 L 98 01/14/19 06:36 01/14/19 06:36 01/14/19 06:36 01/14/19 06:36 01/14/19 06:36 Height 4 ft 11 in Weight (kg) 76 kg Body Mass Index 34.3 - Is Patient ?: No - Lab Results Lab results reviewed: Yes Home Medications and Allergies Home Medications: Ambulatory Orders Gabapentin [Neurontin] 100 mg PO QPM 01/13/19 diphenhydrAMINE [Benadryl] 100 mg PO HS 01/13/19 Lisinopril 10 mg PO DAILY 08/06/18 Gabapentin [Neurontin] 100 mg PO QPM 01/13/19 diphenhydrAMINE [Benadryl] 100 mg PO HS 01/13/19 Allergies/Adverse Reactions: Allergies Allergy/AdvReac Type Severity Reaction Status Date / Time codeine Allergy Unknown Verified 08/14/18 16:26 Anes History & Medical History - Anesthetic History Anesthesia Complications: reports: No previous complications Family history of Anesthesia Complications: Denies Family history of Malignant Hyperthermia: Denies - Medical History Cardiovascular: reports: Hypertension, High cholesterol, Murmur Pulmonary: reports: None Gastrointestinal: reports: Chronic diarrhea Urinary: reports: Nocturia Musculoskeletal: reports: Osteoarthritis, Fibromyalgia Endocrine/Autoimmune: reports: None Blood Disorders: reports: None Skin: reports: None Smoking Status: Never smoker Psychosocial: reports: Depression, Anxiety - Surgical History General: Cholecystectomy, Colonoscopy, Other Eyes Ears Nose Throat (EENT): Tonsil/Adenoidectomy, Other Gynecologic: Tubal ligation Orthopedic: Rotator cuff repair Results - EKG Results EKG Comparison: Reviewed EKG, Normal EKG Exam General: Alert, Oriented x3, Cooperative, No acute distress Dental: WNL Mouth Openin Fingerbreadth Neck Mobility: Normal Mallampati classification: I Thyromental Distance: 4-6 cm Respiratory: Lungs clear, Normal breath sounds, No respiratory distress Cardiovascular: Regular rate, Normal S1, Normal S2, No murmurs Abdomen: Normal bowel sounds Plan Anesthesia Type: General, Interscalene Block Regional Block: Per Surgeon's request for Post Op pain control Consent for Procedure(s) Verified and Reviewed: Yes Code Status: Attempt Resuscitation ASA classification: 2-Mild systemic disease Is this case an emergency?: No
[2019-01-14] MEDS ORDERED: PHENYLEPHRINE 50 MG/5 ML VIAL IV ONE ×2 (07:45)
[2019-01-14] MEDS ORDERED: fentaNYL 100 MCG/2 ML VIAL IVP ONE (07:45)
[2019-01-14] MEDS ORDERED: ePHEDrine 50 MG/ML VIAL IVP ONE (07:45)
[2019-01-14] MEDS ORDERED: PROPOFOL 200 MG/20 ML VIAL IVP ONE (07:45)
[2019-01-14] MEDS ORDERED: DEXAMETHASONE 4 MG/ML VIAL IVP ONE (07:45)
[2019-01-14] MEDS ORDERED: ONDANSETRON 4 MG/2 ML VIAL IVP ONE (07:45)
[2019-01-14] MEDS ORDERED: MIDAZOLAM 2 MG/2 ML VIAL IVP ONE (07:45)
[2019-01-14] MEDS ORDERED: SUCCINYLCHOLINE 200 MG/10 ML VIAL IVP ONE (07:45)
[2019-01-14] MEDS ORDERED: GLYCOPYRROLATE 1 MG/5 ML VIAL IVP ONE (07:45)
[2019-01-14] MEDS ORDERED: ROCURONIUM 50 MG/5 ML VIAL IVP ONE (07:45)
[2019-01-14] MEDS ORDERED: BUPIVACAINE 0.25% PF 30 ML VIAL SUBQ ONE ×2 (08:53)
[2019-01-14] MEDS ORDERED: EPINEPHrine 1 MG/ML AMP IR ONE (08:53)
--- NOTE | 2019-01-14 10:07 | IMMEDIATE POSTOPERATIVE NOTE ---
Immediate Postoperative Note - Procedure Note Procedure Date: 01/14/19 Pre-Op Diagnosis: Right recurrent rotator cuff tear, Retained hardware Procedure: Arthroscopic right shoulder revision rotator cuff repair, AARON, decompressio Post-Op Diagnosis: Same Anesthesia Type: General ET tube, Local, Regional block Findings: As above Complications: No complications Estimated Blood Loss (in cc): 50 Specimens and Cultures: None Plan of Care: Patient tolerated procedure well instrument and sponge counts correct patient transferred to recovery room in stable condition Patient will follow delayed rotator cuff repair protocol. She will avoid any active motion or active assistive motion for approximately 8 weeks. She would start passive range of motion after the first postoperative visit with the physical therapist. She would be in a sling with a pillow she may move elbow wrist and hand but avoid any active shoulder motion. She will avoid lift push pull or any weightbearing right upper extremity. She will follow-up in 10 to 14 days or sooner should problems or questions arise
[2019-01-14] MEDS ORDERED: HYDROmorphone 0.5 MG/0.5 ML SYRINGE ONE (10:19)
[2019-01-14] MEDS ORDERED: oxyCODONE 5 MG TABLET PO PRN (10:42)
[2019-01-14] MEDS ORDERED: ONDANSETRON 4 MG/2 ML VIAL IVP PRN (10:42)
[2019-01-14] MEDS ORDERED: oxyCODONE 5 MG TABLET ONE (10:57)
[2019-01-14 11:20] VITALS: BP 107/69
--- NOTE | 2019-01-16 10:33 | OPERATIVE REPORT ---
DATE OF SERVICE: 01/14/2019 Physician: Alex Ball MD SURGEON: Alex Ball M.D. SOLAR HOT WATER INSTALLER: None. ANESTHESIOLOGIST: Magdy Hernandez CRNA. ESTIMATED BLOOD LOSS: 50 mL PREOPERATIVE ANTIBIOTICS: Two grams weight-based IV Ancef. ORTHOPEDIC IMPLANTS: Arthrex 5.5 Triple-Play BioComposite anchors x2, Arthrex #2 FiberWire x1. COMPRESSION DEVICE: Bilateral calf SCD boots. FLUIDS: 1500 mL lactated Ringer's. PREOPERATIVE DIAGNOSIS: Right recurrent rotator cuff tear. POSTOPERATIVE DIAGNOSIS: Right recurrent rotator cuff tear. PROCEDURES PERFORMED: 1. Right shoulder revision rotator cuff repair, arthroscopic. 2. Right shoulder removal of hardware, sutures from previous rotator cuff surgery. 3. Right shoulder subacromial decompression of soft tissue. HISTORY OF PRESENT ILLNESS AND INDICATIONS: Angelita is a 53-year-old female who had demonstrated not o nly symptoms but signs and MRI consistent with recurrent rotator cuff tear indicated for operative tr eatment. Please see preoperative clinic visit for further discussion of risks, benefits, and alterna tives which were discussed in detail. These were again highlighted with the patient and the patient' s significant other in the preoperative area. Her questions were answered. She verbalized her wish to proceed with operative treatment. Informed consent was given. INTRAOPERATIVE FINDINGS: The patient was noted to have a large central retear of the supraspinatus t endon and mostly a crescent-shape though with a hdqs-lm-nemj split posteriorly. There were residual sutures in multiple locations, which were free. There was subacromial fibrous and scar tissue. Post-removal of sutures/hardware from previous surgery and subacromial decompression of soft tissue a nd debridement of rotator cuff and then repair of rotator cuff. The rotator cuff was to a near anato benny position with good integrity of the repair with range of motion of the shoulder. PROCEDURE: On 01/14/2019, patient was identified in the preoperative care unit. She identified her right shoulder as the operative site. This was signed. She was brought to the operating room after regional block anesthesia was performed under ultrasound guidance by anesthesia team. She was placed supine on the operating table. General anesthesia was administered, then she was placed in a left s pam down lateral decubitus position with appropriately placed gel pad for axillary protection and hea d and neck and extremities are placed in anatomically comfortable and safe positions to avoid periphe ral nerve stretch and compression. A beanbag was used and the down leg was gel padded. SCD boots we re in place. At this time, the patient's right upper extremity was draped out. The right shoulder and right upper extremity were pre-scrubbed with Hibiclens solution, then alcohol, and then prepped and draped in th e usual sterile fashion using ChloraPrep solution. Ten pounds of traction was used. At this time, surgical pause identified the right shoulder as the operative site. At this time, loca l anesthesia was infused posteriorly, anteriorly, and laterally. Please see nursing report for final number (30 mL of 0.25% plain Marcaine). At this time, the incision was made posteriorly. The scope was introduced into the joint. Diagnostic arthroscopy was carried out. Intraoperative findings show that there is chondromalacia grade 1-2 in the glenohumeral joints with s upraspinatus tearing. No other rotator cuff tear of significance is appreciated. At this point, att ention was directed towards placing a marking suture through the rotator cuff tear using a spinal nee dle and then attention was directed toward the subacromial space. The trocar for the scope was redir ected in the subacromial space. A lateral incision was made. The shaver was brought laterally and t hen subacromial decompression was performed to debride fibrous and scar tissue in the subacromial spa ce. At this point, the free edge of the rotator cuff was debrided sharply using a meniscal basket. The rotator cuff footprint was debrided, first with a shaver and then with a bur, taking 1-2 mm of th e articular cartilage edge to decrease stress on the cuff and to uncover freshly bleeding bone in the footprint while leaving good integrity of the bone. At this point, it was determined that a side-to -side mcvrus-po-dqeqd suture could be placed posteriorly to close down the posterior small side-to-si de element of the tear and also make the entire tear smaller. At this point, using the anterior port al and lateral portal for working portals, a FastPass Scorpion was used to pass sutures in a figure-o f-eight fashion, closing down the posterior aspect of the tear. This was tied with a surgeon's knot and multiple reverse half hitches and then probed and noted to be stable. At this time, it was plann ed for two anchors. The anchor that was previously noted, metallic in nature, was left in the intere st of nonviolating the bone additionally and in the interest of leaving good integrity of the bone, s uch that there was no void, which could make fixation in the bone difficult. At this point, a 5.5 Bi oComposite Triple-Play anchor was placed, one anterior in the footprint just posterior to the rotator interval and biceps and then one just posterior to the previous anchor. These were then passed with 3 simple sutures anteriorly, 1 horizontal mattress suture going across the most lateral aspect of th e previously fixed qadl-ib-ddtd split, and then 2 additional simple sutures. These were tied in reve rse order thereby re-opposing the rotator cuff to its near anatomic footprint. Suture limbs are cut and the rotator cuff was probed and noted to be stable with no significant dog-ear formation. No res idual tear appreciated. The subacromial space was copiously irrigated. Hemostasis was achieved and instruments were removed. Local anesthesia was infused around the incisions. The incisions were solitario sed using interrupted nylon suture. The skin was washed and dried. Xeroform dressing was applied. A dry sterile dressing was applied with 4 x 4, Micropore tape, and ABD pad. The patient was placed i n an abduction pillow sling. The patient tolerated the procedure well. Instrument and sponge counts were correct. The patient wa s transferred to the recovery room in stable condition. The patient will follow a delayed right shoulder rotator cuff repair protocol and avoid any active or active-assisted motion for at least 8 weeks. She will be in a sling, but coming out for elbow, wris t, and hand exercises only. She will avoid weightbearing, lift, push, or pull of the right upper ext remity. The patient was given perioperative pain medication prescription and perioperative antibiotic prescri ption and will use nzxu-jhd-wlosoum bowel regimen while using narcotic analgesics. She will follow u p in 10-14 days or sooner should problems or questions arise. The patient's significant other was contacted in the waiting room. The case was discussed. [facility]. His questions answered as the patient's questions were answered preoperatively . They both had verbalized agreement and satisfaction with the plan as outlined. TD: 01/16/2019 07:16
== END 2019-01-14 06:11 | disposition home or self-care (01) ==
LOC: SDS 06:10
PROVIDERS: ATTEND Orthopaedic Surgery Sports Medicine
PROC: 0RNJ4ZZ Release Right Shoulder Joint, Percutaneous Endoscopic Approach (ICD-10-PCS; 2019-01-14)
PROC: 0LQ14ZZ Repair Right Shoulder Tendon, Percutaneous Endoscopic Approach (ICD-10-PCS; principal; 2019-01-14 07:30)
DX: M75.111 Incomplete rotator cuff tear or rupture of right shoulder, not specified as traumatic (principal); M62.511 Muscle wasting and atrophy, not elsewhere classified, right shoulder; M94.211 Chondromalacia, right shoulder; M81.0 Age-related osteoporosis without current pathological fracture; M79.7 Fibromyalgia; I10 Essential (primary) hypertension; E66.9 Obesity, unspecified; Z79.899 Other long term (current) drug therapy; Z68.34 Body mass index [BMI] 34.0-34.9, adult
CPT/HCPCS: 29827; A9270; C1713; J0131; J0330; J0690; J1170; J7120

== ENCOUNTER 2019-03-01 13:29 | Emergency (ER) | payer MEDICAID ==
--- NOTE | 2019-03-01 15:21 | ED Physician Documentation ---
PD HPI HEENT - Stated complaint Stated Complaint: THROAT PX - Chief complaint Chief Complaint: Heent - History obtained from History obtained from: Patient - History of Present Illness Timing - onset: How many days ago (2-3) Timing - duration: Days Timing - details: Abrupt onset, Still present Location: Throat Worsens: Swalllowing Associated symptoms: Swollen nodes. No: Fever, Facial swelling Similar symptoms before: Diagnosis (she says has had this in the past from commonly non-group A strep cause (usually neg rapid tests, per patient).) Recently seen: Not recently seen Review of Systems Constitutional: denies: Fever Nose: denies: Rhinorrhea / runny nose, Congestion Throat: reports: Sore throat. 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 HEENT: Tonsil/Adenoidectomy, Other - Present Medications Home Medications: Ambulatory Orders Medication Instructions Recorded Confirmed Lisinopril 10 mg PO DAILY 08/06/18 01/13/19 Gabapentin [Neurontin] 100 mg PO QPM 01/13/19 01/13/19 diphenhydrAMINE [Benadryl] 100 mg PO HS 01/13/19 01/13/19 Cephalexin [Keflex] 500 mg PO Q6H #21 capsule 03/01/19 Chlorhexidine Gluconate [Peridex] 10 ml MM TID #118 mouthwash 03/01/19 - Allergies Allergies/Adverse Reactions: Allergies Allergy/AdvReac Type Severity Reaction Status Date / Time codeine Allergy Unknown Verified 03/01/19 13:39 - Living Situation Living Arrangement: reports: At home - Social History Does the pt smoke?: No Smoking Status: Never smoker Does the pt drink ETOH?: Yes Does the pt have substance abuse?: No - Immunizations Immunizations are current?: Yes - POLST Patient has POLST: No PD ED PE NORMAL - Vitals Vital signs reviewed: Yes - General General: Alert and oriented X 3, No acute distress, Well developed/nourished - HEENT HEENT: Ears normal, Dentition benign. No: Pharynx benign (post tonsillectomy. pharyngeal tissue with some redness and white exudate more to left side, but some on both. No focal edema. ) - Neck Neck: Supple, no meningeal sign, Other (anterior adenopathy) - Cardiac Cardiac: RRR, No murmur - Respiratory Respiratory: Clear bilaterally Results - Vitals Vitals: Vital Signs - 24 hr 03/01/19 03/01/19 13:36 15:58 Temperature 36.7 C Heart Rate 95 77 Respiratory 20 16 Rate Blood Pressure 140/67 H 135/87 H O2 Saturation 98 99 Oxygen O2 Source Room air - Labs Labs: Laboratory Tests 03/01/19 13:57 Group A Strep Rapid Negative PD MEDICAL DECISION MAKING - ED course Complexity details: considered differential, d/w patient Departure - Departure Disposition: 01 Home, Self Care Clinical Impression: Pharyngitis Qualifiers: Pharyngitis/tonsillitis etiology: unspecified etiology Qualified Code(s): J02.9 - Acute pharyngitis, unspecified Condition: Stable Record reviewed to determine appropriate education?: Yes Follow-Up: Enzo Babb PA-C [Primary Care Provider] - Prescriptions: Cephalexin [Keflex] 500 mg PO Q6H #21 capsule Chlorhexidine Gluconate [Peridex] 10 ml MM TID #118 mouthwash Comments: Stay well-hydrated. Tylenol or ibuprofen if needed for discomfort. Cephalexin 3 times a day for a week as directed. Rinse with 10 mils antiseptic solution oral rinse 2-3 times a day for the next several days. Recheck if not improving over the next several days to week. Discharge Date/Time: 03/01/19 15:58
[2019-03-01] MEDS ORDERED: ACETAMINOPHEN 325 MG TABLET PO STA (15:43)
[2019-03-01] MEDS ORDERED: cephALEXin 250 MG CAPSULE PO STA (15:43)
[2019-03-01 15:59] VITALS: BP 135/87
== END 2019-03-01 15:58 | disposition home or self-care (01) ==
LOC: ED 13:29
DX: J02.9 Acute pharyngitis, unspecified (principal)
CPT/HCPCS: 87070; 87077; 87430; 99282; 99283; A9270

== ENCOUNTER 2019-03-07 16:26 | Emergency (ER) | payer MEDICAID ==
[2019-03-07 16:39] VITALS: BP 130/73
[2019-03-07] MEDS ORDERED: AMOX/CLAV 875 MG/125 MG TABLET PO STA (17:19)
[2019-03-07] MEDS ORDERED: HYDROcod/ACETAM 5/325 MG TABLET PO STA (17:19)
--- NOTE | 2019-03-07 17:21 | ED Physician Documentation ---
PD HPI HEENT - Stated complaint Stated Complaint: WHITE/RED SPOTS ON THROAT, LT EAR PAIN - Chief complaint Chief Complaint: Heent - History obtained from History obtained from: Patient (Recent strep throat on Keflex, now 2 days of severe left ear pain with muffled hearing. 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 HEENT: Tonsil/Adenoidectomy, Other - Present Medications Home Medications: Ambulatory Orders Medication Instructions Recorded Confirmed Lisinopril 10 mg PO DAILY 08/06/18 01/13/19 Gabapentin [Neurontin] 100 mg PO QPM 01/13/19 01/13/19 diphenhydrAMINE [Benadryl] 100 mg PO HS 01/13/19 01/13/19 Cephalexin [Keflex] 500 mg PO Q6H #21 capsule 03/01/19 Chlorhexidine Gluconate [Peridex] 10 ml MM TID #118 mouthwash 03/01/19 Amox/Clav 875/125 [Augmentin] 1 each PO Q12H #20 tablet 03/07/19 Hydrocodone/Acetaminophen 1 - 2 each PO Q6H PRN #10 tablet 03/07/19 [Hydrocodon-Acetaminophen 5-325] - Allergies Allergies/Adverse Reactions: Allergies Allergy/AdvReac Type Severity Reaction Status Date / Time codeine Allergy Unknown Verified 03/01/19 13:39 - Social History Does the pt smoke?: No Smoking Status: Never smoker Does the pt drink ETOH?: Yes Does the pt have substance abuse?: No - Immunizations Immunizations are current?: Yes - POLST Patient has POLST: No PD ED PE NORMAL - Vitals Vital signs reviewed: Yes - General General: Alert and oriented X 3, No acute distress - HEENT HEENT: Other (Oropharynx looks okay, severe left otitis media.) - Neck Neck: Supple, no meningeal sign, No bony TTP - Neuro Neuro: Alert and oriented X 3, fish checker 2-12 intact, No motor deficit, No sensory deficit, Normal speech Results - Vitals Vitals: Vital Signs - 24 hr 03/07/19 16:33 Temperature 36.5 C Heart Rate 95 Blood Pressure 130/73 O2 Saturation 97 Oxygen O2 Source Room air Departure - Departure Disposition: Home, Self Care Clinical Impression: LOM (left otitis media) Condition: Good Record reviewed to determine appropriate education?: Yes Instructions: ED Otitis Media Acute Adult Prescriptions: Amox/Clav 875/125 [Augmentin] 1 each PO Q12H #20 tablet Hydrocodone/Acetaminophen [Hydrocodon-Acetaminophen 5-325] 1 - 2 each PO Q6H PRN #10 tablet PRN Reason: pain
== END 2019-03-07 17:29 | disposition home or self-care (01) ==
LOC: ED 16:26
DX: H66.92 Otitis media, unspecified, left ear (principal)
CPT/HCPCS: 99282; 99283; A9270

== ENCOUNTER 2019-05-07 10:40 | Outpatient (CLI) | payer MEDICAID ==
--- NOTE | 2019-05-12 14:00 | Mammography Report ---
Reason: ROUTINE SCREENING Procedure Date: 05/07/2019 Accession Number: [id number] / [id number] Procedure: ENRIQUE - Screening Mammo Dig Bilat CPT Code: Final Report FULL RESULT: EXAM: Screening Mammo Dig Bilat DATE: 05/07/2019 11:24 AM CLINICAL HISTORY: Screening encounter. TECHNIQUE: (B) - Bilateral CC and MLO views were obtained. COMPARISON: 03/10/2018. PARENCHYMAL PATTERN: (F) - The breast(s) demonstrate(s) diffuse fatty replacement. FINDINGS: In the right upper breast seen on lateral view only 13 cm from the nipple is a well-circumscribed cluster of isodense nodules individually measuring less than 5 mm, potentially present on the previous examination with the finding is partially obscured by the pectoralis musculature. This warrants additional characterization by focused right breast ultrasound. There are no suspicious masses, calcifications, or areas of distortion in the left breast. IMPRESSION: Incomplete examination. BI-RADS category 0. RECOMMENDATION: (ADDUS) - Targeted ultrasound recommended. Right breast. BI-RADS CATEGORY: (0) - Incomplete Examination - need additional evaluation. STANDARD QUALIFYING STATEMENTS: 1. This examination was not reviewed with the aid of Computer-Aided Detection (CAD). 2. A negative or benign imaging report should not preclude biopsy if clinically suspicious findings are present. 3. Dense breasts may obscure an underlying neoplasm. 4. This examination was reviewed without the aid of 3D breast imaging (tomosynthesis).
== END 2019-05-07 10:41 | disposition home or self-care (01) ==
LOC: DI 10:40
DX: Z12.31 Encounter for screening mammogram for malignant neoplasm of breast (principal); R92.8 Other abnormal and inconclusive findings on diagnostic imaging of breast
CPT/HCPCS: 77067

== ENCOUNTER 2019-05-26 12:01 | Outpatient (CLI) | payer MEDICAID ==
--- NOTE | 2019-05-26 13:10 | Ultrasound Report ---
Reason: ABNORMAL MAMMOGRAM Procedure Date: 05/26/2019 Accession Number: [id number] / [id number] Procedure: US - Breast Unilateral Limited CPT Code: Final Report FULL RESULT: EXAM: Breast Unilateral Limited DATE: 05/26/2019 12:54 PM CLINICAL HISTORY: ABNORMAL MAMMOGRAM patient recalled from screening mammography for a new nodule in the right breast. COMPARISON: 05/07/2019 and 03/10/2018. TECHNIQUE: Targeted ultrasound was performed of the right breast in the area of clinical concern at 10 o'clock and 11 cm distance from the nipple. Color Doppler was employed as appropriate. FINDINGS: The upper outer and upper inner breast are carefully examined by grayscale and limited color Doppler ultrasound. In the axilla tail region of the patient's right breast at the 10:00 position 11 cm from the nipple is a sonographically typically benign appearing lymph node which matches the mammographic finding in size shape and appearance and measures up to 0.9 x 0.4 x 0.8 cm with preserved fatty hilum and normal hilar blood flow by limited color Doppler. No abnormal mass, collection or architectural distortion is detected. IMPRESSION: Benign findings RECOMMENDATION: Recommend routine annual Screening mammography unless otherwise clinically indicated. BIRADS CATEGORY 2: Benign findings RADIA
== END 2019-05-26 12:02 | disposition home or self-care (01) ==
LOC: DI 12:01
PROVIDERS: ATTEND Physician Assistant Medical
DX: R92.8 Other abnormal and inconclusive findings on diagnostic imaging of breast (principal)
CPT/HCPCS: 76642

== ENCOUNTER 2019-05-30 16:57 | Emergency (ER) | payer MEDICAID ==
[2019-05-30 17:06] VITALS: BP 151/74
[2019-05-30] MEDS ORDERED: AMOX/CLAV 875 MG/125 MG TABLET PO STA (18:10)
--- NOTE | 2019-05-30 18:12 | ED Physician Documentation ---
History of Present Illness - Stated complaint Stated Complaint: RT NECK PX - Chief complaint Chief Complaint: General - History obtained from History obtained from: Patient - History of Present Illness Timing: Other (53-year-old woman who is having some ongoing dental pain from right mandibular molar, now with some pain in the right neck. No fevers. The pain in the next been about 2 days. 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 HEENT: Tonsil/Adenoidectomy, Other - Present Medications Home Medications: Ambulatory Orders Medication Instructions Recorded Confirmed lisinopriL [Lisinopril] 10 mg PO DAILY 08/06/18 01/13/19 Gabapentin [Neurontin] 100 mg PO QPM 01/13/19 01/13/19 diphenhydrAMINE [Benadryl] 100 mg PO HS 01/13/19 01/13/19 Cephalexin [Keflex] 500 mg PO Q6H #21 capsule 03/01/19 Chlorhexidine Gluconate [Peridex] 10 ml MM TID #118 mouthwash 03/01/19 Amox/Clav 875/125 [Augmentin] 1 each PO Q12H #20 tablet 03/07/19 Hydrocodone/Acetaminophen 1 - 2 each PO Q6H PRN #10 tablet 03/07/19 [Hydrocodon-Acetaminophen 5-325] Amox/Clav 875/125 [Augmentin] 1 each PO Q12H #20 tablet 05/30/19 Hydrocodone/Acetaminophen 1 - 2 each PO Q6H PRN #10 tablet 05/30/19 [Hydrocodon-Acetaminophen 5-325] - Allergies Allergies/Adverse Reactions: Allergies Allergy/AdvReac Type Severity Reaction Status Date / Time codeine Allergy Unknown Verified 05/30/19 17:06 - Social History Does the pt smoke?: No Smoking Status: Never smoker Does the pt drink ETOH?: Yes Does the pt have substance abuse?: No - Immunizations Immunizations are current?: Yes - POLST Patient has POLST: No PD ED PE NORMAL - Vitals Vital signs reviewed: Yes - General General: Alert and oriented X 3, No acute distress - HEENT HEENT: Other (She generally has poor dentition, culprit tooth is of the last remaining right mandibular molar which is mildly tender. No sublingual edema or trismus. She has a reactive lymph node on the right side without limited range of motion of the neck.) - Neuro Neuro: Alert and oriented X 3, Normal speech Results - Vitals Vitals: Vital Signs - 24 hr 05/30/19 17:03 Temperature 36.6 C Heart Rate 95 Respiratory 16 Rate Blood Pressure 151/74 H O2 Saturation 100 Oxygen O2 Source Room air Departure - Departure Disposition: 01 Home, Self Care Clinical Impression: Dental infection Condition: Good Record reviewed to determine appropriate education?: Yes Instructions: ED Abscess Dental Prescriptions: Amox/Clav 875/125 [Augmentin] 1 each PO Q12H #20 tablet Hydrocodone/Acetaminophen [Hydrocodon-Acetaminophen 5-325] 1 - 2 each PO Q6H PRN #10 tablet PRN Reason: pain Comments: It is very important that you follow-up with a dentist. When it comes to dental problems like yours, the emergency department can only offer a short-term solution to your long-term problem. A couple of low cost options for dental care include: [facility] in [place], calls [phone] for an appointment Or [facility] in [place], call [phone] for an appointment.
[2019-05-30] MEDS ORDERED: HYDROcod/ACETAM 5/325 MG TABLET PO STA (18:29)
== END 2019-05-30 18:37 | disposition home or self-care (01) ==
LOC: ED 16:57
DX: K04.7 Periapical abscess without sinus (principal)
CPT/HCPCS: 99282; 99283; A9270

== ENCOUNTER 2019-07-09 17:07 | Outpatient (CLI) | payer MEDICAID | END 2019-07-09 17:08 | disposition home or self-care (01) | LOC: COV 17:07 | PROVIDERS: ATTEND Family Medicine | DX: R50.9 Fever, unspecified (principal); R05 Cough; R06.02 Shortness of breath; R06.2 Wheezing; M79.10 Myalgia, unspecified site; R53.83 Other fatigue; J02.9 Acute pharyngitis, unspecified | CPT/HCPCS: 81599 ==

== ENCOUNTER 2019-07-13 17:31 | Emergency (ER) | payer MEDICAID ==
--- NOTE | 2019-07-13 17:48 | ED Physician Documentation ---
PD HPI DYSPNEA - Stated complaint Stated Complaint: SOA, COUGH, C- - Chief complaint Chief Complaint: Resp - History obtained from History obtained from: Patient (She is been sick for about a week with cough which is productive, shortness of breath especially on exertion. She was seen by her doctor and coronavirus testing was done and reportedly negative. She has not had any fevers but did have a temperature of 99 towards the beginning of this illness. She does not smoke. She was on steroids which did not help. She denies pedal edema or calf pain. No history of heart or lung problems. She was taking inhaler also, she did not find that helpful.) Review of Systems Constitutional: denies: Fever, Chills Nose: reports: Rhinorrhea / runny nose Throat: reports: Sore throat Cardiac: denies: Chest pain / pressure Respiratory: reports: Dyspnea, Cough PD PAST MEDICAL HISTORY - Past Medical History Cardiovascular: High cholesterol, Murmur Respiratory: None Endocrine/Autoimmune: None GI: None : Nocturia HEENT: Chronic sinusitis Psych: Anxiety Musculoskeletal: Osteoarthritis, Other Derm: None - Past Surgical History Past Surgical History: No General: Cholecystectomy, Colonoscopy, Other Ortho: 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 HEENT: Tonsil/Adenoidectomy, Other - Present Medications Home Medications: Ambulatory Orders Medication Instructions Recorded Confirmed lisinopriL [Lisinopril] 10 mg PO DAILY 08/06/18 01/13/19 Gabapentin [Neurontin] 100 mg PO QPM 01/13/19 01/13/19 diphenhydrAMINE [Benadryl] 100 mg PO HS 01/13/19 01/13/19 Cephalexin [Keflex] 500 mg PO Q6H #21 capsule 03/01/19 Chlorhexidine Gluconate [Peridex] 10 ml MM TID #118 mouthwash 03/01/19 Amox/Clav 875/125 [Augmentin] 1 each PO Q12H #20 tablet 03/07/19 Hydrocodone/Acetaminophen 1 - 2 each PO Q6H PRN #10 tablet 03/07/19 [Hydrocodon-Acetaminophen 5-325] Amox/Clav 875/125 [Augmentin] 1 each PO Q12H #20 tablet 05/30/19 Hydrocodone/Acetaminophen 1 - 2 each PO Q6H PRN #10 tablet 05/30/19 [Hydrocodon-Acetaminophen 5-325] Azithromycin 1 tab PO DAILY #4 tablet 07/13/19 Cefdinir 300 mg PO BID #20 capsule 07/13/19 Potassium Chloride 20 meq PO DAILY #3 tablet.er 07/13/19 - Allergies Allergies/Adverse Reactions: Allergies Allergy/AdvReac Type Severity Reaction Status Date / Time codeine Allergy Unknown Verified 07/13/19 17:34 - Social History Does the pt smoke?: No Smoking Status: Never smoker Does the pt drink ETOH?: Yes Does the pt have substance abuse?: No - Immunizations Immunizations are current?: Yes - POLST Patient has POLST: No PD ED PE NORMAL - Vitals Vital signs reviewed: Yes - General General: Alert and oriented X 3, No acute distress - HEENT HEENT: PERRL, EOMI - Neck Neck: Supple, no meningeal sign, No bony TTP - Cardiac Cardiac: RRR, No murmur - Respiratory Respiratory: No respiratory distress, Other (Mild wheezing at both bases, speaking in full sentences and not overtly labored.) - Abdomen Abdomen: Non tender - Extremities Extremities: No edema, No calf tenderness / cord - Neuro Neuro: Alert and oriented X 3, Normal speech Results - Vitals Vitals: Vital Signs - 24 hr 07/13/19 07/13/19 17:34 20:10 Temperature 36.5 C Heart Rate 85 84 Respiratory 16 18 Rate Blood Pressure 122/61 126/82 H O2 Saturation 98 96 Oxygen O2 Source Room air - Labs Labs: Laboratory Tests 07/13/19 07/13/19 18:15 18:15 WBC 7.3 RBC 4.21 Hgb 12.4 Hct 38.9 MCV 92.4 MCH 29.5 MCHC 31.9 L RDW 12.6 Plt Count 368 MPV 8.5 Neut # (Auto) 2.8 Lymph # (Auto) 3.4 Meade # (Auto) 1.0 Eos # (Auto) 0.1 Baso # (Auto) 0.1 Absolute Nucleated RBC 0.00 Nucleated RBC % 0.0 Sodium 142 Potassium 2.9 L Chloride 104 Carbon Dioxide 31 Anion Gap 7.0 BUN 14 Creatinine 0.7 Estimated GFR (MDRD) 87 L Glucose 113 H Calcium 8.7 Total Bilirubin 0.5 AST 19 ALT 21 Alkaline Phosphatase 71 Total Protein 6.7 Albumin 3.7 Globulin 3.0 Albumin/Globulin Ratio 1.2 Lipase 37 - Rads (name of study) 1v chest Radiology: EMP read contemporaneously (Right lung airspace disease concerning for pneumonia) PD MEDICAL DECISION MAKING - ED course ED course: 53-year-old woman with an ongoing illness. She is been on steroids and albuterol without improvement. X-ray here demonstrates pneumonia and she is treated with cephalosporin plus azithromycin. Departure - Departure Disposition: 01 Home, Self Care Clinical Impression: Hypokalemia Pneumonia Qualifiers: Pneumonia type: due to unspecified organism Laterality: right Lung location: lower lobe of lung Qualified Code(s): J18.9 - Pneumonia, unspecified organism Condition: Good Record reviewed to determine appropriate education?: Yes Instructions: ED Pneumonia Adult Prescriptions: Azithromycin 1 tab PO DAILY #4 tablet Cefdinir 300 mg PO BID #20 capsule Potassium Chloride 20 meq PO DAILY #3 tablet.er Comments: It appears today that you have a pneumonia of the right lung. We are repeating the COVID testing but I suspect this will not be positive. We will call you. Return for new or worsening symptoms. Follow-up with your doctor within the week. Discharge Date/Time: 07/13/19 20:10
[2019-07-13 18:24] LABS: BASOPHILS # (AUTO) 0.1 10^3/uL (0.0-0.1); BASOPHILS % (AUTO) 0.7 %; EOSINOPHILS # (AUTO) 0.1 10^3/uL (0.0-0.7); EOSINOPHILS % (AUTO) 1.4 %; HGB - HEMOGLOBIN 12.4 g/dL (12.0-16.0); LYMPHOCYTES # (AUTO) 3.4 10^3/uL (1.5-3.5); LYMPHOCYTES % (AUTO) 46.6 %; MEAN CORPUSCULAR HEMOGLOBIN 29.5 pg (27.0-31.0); MEAN CORPUSCULAR HGB CONC 31.9 g/dL (32.0-36.0); MEAN CORPUSCULAR VOLUME 92.4 fL (81.0-99.0); MEAN PLATELET VOLUME 8.5 fL (7.9-10.8); MONOCYTES % (AUTO) 13.3 %; NEUTROPHILS # (AUTO) 2.8 10^3/uL (1.5-6.6); NEUTROPHILS % (AUTO) 37.9 %; PLT - PLATELET COUNT 368 10^3/uL (130-450); RED BLOOD COUNT 4.21 10^6/uL (4.20-5.40); RED CELL DISTRIBUTION WIDTH 12.6 % (12.0-15.0); WHITE BLOOD COUNT 7.3 x10^3/uL (4.8-10.8)
[2019-07-13 18:35] LABS: ALBUMIN 3.7 g/dL (3.2-5.5); ALBUMIN/GLOBULIN RATIO 1.2 (1.0-2.2); BILIRUBIN,TOTAL 0.5 mg/dL (0.2-1.0); CALCIUM 8.7 mg/dL (8.5-10.3); CREATININE 0.7 mg/dL (0.4-1.0); TOTAL PROTEIN 6.7 g/dL (6.7-8.2)
[2019-07-13] MEDS ORDERED: POTASSIUM CHLORIDE 20 MEQ TABLET PO STA (18:58)
--- NOTE | 2019-07-13 19:06 | XRAY Report ---
Reason: cough Procedure Date: 07/13/2019 Accession Number: [id number] / [id number] Procedure: XR - Chest 1 View X-Ray CPT Code: 34686 Final Report FULL RESULT: EXAM: CHEST RADIOGRAPHY EXAM DATE: 07/13/2019 06:35 PM. CLINICAL HISTORY: Cough. COMPARISON: CHEST 2 VIEW 02/13/2018 9:57 AM. TECHNIQUE: 1 view. FINDINGS: Lungs/Pleura: New moderate diffuse right lung airspace disease concerning for pneumonia. No pleural effusion or pneumothorax. Mediastinum: Within exam limitations, the cardiomediastinal contour is normal. IMPRESSION: New moderate diffuse right lung airspace disease concerning for pneumonia. RADIA
[2019-07-13] MEDS ORDERED: AZITHROMYCIN 250 MG TABLET PO STA (19:07)
[2019-07-13 20:11] VITALS: BP 126/82
== END 2019-07-13 20:10 | disposition home or self-care (01) ==
LOC: ED 17:31
DX: J18.9 Pneumonia, unspecified organism (principal); E87.6 Hypokalemia
CPT/HCPCS: 36415; 71045; 80053; 83690; 85025; 87635; 99284; A9270; 81599

== ENCOUNTER 2019-08-06 16:17 | Outpatient (CLI) | payer MEDICAID ==
--- NOTE | 2019-08-07 11:25 | XRAY Report ---
Reason: PNEUMONIA Procedure Date: 08/06/2019 Accession Number: [id number] / [id number] Procedure: XR - Chest 2 View X-Ray CPT Code: 63976 Final Report FULL RESULT: EXAM: CHEST RADIOGRAPHY EXAM DATE: 08/06/2019 05:20 PM. CLINICAL HISTORY: Pneumonia. Followup. COMPARISON: CHEST 1 VIEW 07/13/2019 6:14 PM. TECHNIQUE: 2 views. FINDINGS: Lungs/Pleura: Lungs now appear clear. No pleural fluid collections. No pulmonary edema detected. Mediastinum: Heart and mediastinal contours are unremarkable. Other: Healed previous left lateral rib fracture. Mild lower thoracolumbar scoliosis. IMPRESSION: No lung consolidations identified on today's exam. RADIA
== END 2019-08-06 16:18 | disposition home or self-care (01) ==
LOC: DI 16:17
PROVIDERS: ATTEND Physician Assistant Medical
DX: Z09 Encounter for follow-up examination after completed treatment for conditions other than malignant neoplasm (principal); Z87.01 Personal history of pneumonia (recurrent)
CPT/HCPCS: 71046

== ENCOUNTER 2019-10-14 14:31 | Outpatient (CLI) | payer MEDICAID ==
--- NOTE | 2019-10-14 15:19 | Ultrasound Report ---
PROCEDURE: Carotid Doppler Complete INDICATIONS: LIGHTHEADEDNESS TECHNIQUE: Color and pulse Doppler interrogation was performed of both carotid systems, with image documentation and velocity measurements. COMPARISON: None. FINDINGS: Right side: Common carotid artery peak systolic velocity: 112 cm/sec. Internal carotid artery peak systolic velocity: 85 cm/sec. Internal carotid artery end diastolic velocity: 34 cm/sec. External carotid artery peak systolic velocity: 106 cm/sec. ICA/CCA peak systolic ratio: 0.8 . Quinn scale imaging description: Unremarkable Percent internal carotid artery stenosis: No hemodynamically significant stenosis. . Vertebral artery: Flow direction is antegrade. Left side: Common carotid artery peak systolic velocity: 95 cm/sec. Internal carotid artery peak systolic velocity: 63 cm/sec. Internal carotid artery end diastolic velocity: 30 cm/sec. External carotid artery peak systolic velocity: 111 cm/sec. ICA/CCA peak systolic ratio: 0.7 . Quinn scale imaging description: Unremarkable Percent internal carotid artery stenosis: No hemodynamically significant stenosis . Vertebral artery: Flow direction is antegrade. IMPRESSION: No hemodynamically significant stenosis of the internal carotid arteries bilaterally. The estimate of stenosis included in the report of the imaging study was calculated using the NASCET method Reviewed by: Varsha Turcios MD on 10/14/2019 3:18 PM PDT Approved by: Varsha Turcios MD on 10/14/2019 3:18 PM PDT Station ID: [id number]
== END 2019-10-14 14:32 | disposition home or self-care (01) ==
LOC: DI 14:31
PROVIDERS: ATTEND Nurse Practitioner
DX: R42 Dizziness and giddiness (principal)
CPT/HCPCS: 93880

== ENCOUNTER 2019-10-16 07:39 | Outpatient (CLI) | payer MEDICAID | END 2019-10-16 07:40 | disposition home or self-care (01) | LOC: DI 07:39 | PROVIDERS: ATTEND Nurse Practitioner | DX: R01.1 Cardiac murmur, unspecified (principal); I10 Essential (primary) hypertension; E87.6 Hypokalemia; J18.9 Pneumonia, unspecified organism; I49.9 Cardiac arrhythmia, unspecified; G64 Other disorders of peripheral nervous system | CPT/HCPCS: 36415; 80050; 80061; 83721; 93306 ==

== ENCOUNTER 2019-10-16 08:40 | Outpatient (CLI) | payer MEDICAID ==
[2019-10-16 08:54] LABS: BASOPHILS % (AUTO) 0.8 %; EOSINOPHILS # (AUTO) 0.1 10^3/uL (0.0-0.7); EOSINOPHILS % (AUTO) 2.6 %; HGB - HEMOGLOBIN 13.3 g/dL (12.0-16.0); LYMPHOCYTES # (AUTO) 2.4 10^3/uL (1.5-3.5); LYMPHOCYTES % (AUTO) 45.8 %; MEAN CORPUSCULAR HEMOGLOBIN 29.7 pg (27.0-31.0); MEAN CORPUSCULAR HGB CONC 31.4 g/dL (32.0-36.0); MEAN CORPUSCULAR VOLUME 94.4 fL (81.0-99.0); MEAN PLATELET VOLUME 8.9 fL (7.9-10.8); MONOCYTES # (AUTO) 0.9 10^3/uL (0.0-1.0); MONOCYTES % (AUTO) 16.8 %; NEUTROPHILS # (AUTO) 1.8 10^3/uL (1.5-6.6); NEUTROPHILS % (AUTO) 33.8 %; PLT - PLATELET COUNT 294 10^3/uL (130-450); RED BLOOD COUNT 4.48 10^6/uL (4.20-5.40); RED CELL DISTRIBUTION WIDTH 12.9 % (12.0-15.0); WHITE BLOOD COUNT 5.3 x10^3/uL (4.8-10.8)
[2019-10-16 09:09] LABS: ALBUMIN/GLOBULIN RATIO 1.2 (1.0-2.2); ALKALINE PHOSPHATASE 64 IU/L (42-121); ALT ALANINE AMINOTRANSFERASE 18 IU/L (10-60); AST ASPARTATE AMINOTRANSFERASE 21 IU/L (10-42); BILIRUBIN,TOTAL 0.8 mg/dL (0.2-1.0); BUN - BLOOD UREA NITROGEN 12 mg/dL (6-20); CALCIUM 9.1 mg/dL (8.5-10.3); CARBON DIOXIDE - CO2 29 mmol/L (21-32); CHLORIDE 105 mmol/L (101-111); CHOL/HDL RATIO 3.3 (<4.4); CHOLESTEROL 258 mg/dL; CREATININE 0.8 mg/dL (0.4-1.0); GLUCOSE 96 mg/dL (70-100); HDL CHOLESTEROL 78 mg/dL; LDL CHOLESTEROL,CALCULATED 164 mg/dL; LDL/HDL RATIO 2.1 (<4.4); SODIUM 141 mmol/L (135-145); TOTAL PROTEIN 7.3 g/dL (6.7-8.2); VLDL CHOLESTEROL 16 mg/dL
== END 2019-10-16 08:41 | disposition home or self-care (01) ==
LOC: LAB 08:40
PROVIDERS: ATTEND Family Medicine
DX: E87.6 Hypokalemia (principal); J18.9 Pneumonia, unspecified organism; I10 Essential (primary) hypertension; I49.9 Cardiac arrhythmia, unspecified; G64 Other disorders of peripheral nervous system
CPT/HCPCS: 36415; 80050; 80061; 83721

== ENCOUNTER 2020-02-19 18:57 | Emergency (ER) | payer MEDICAID ==
[2020-02-19 19:03] VITALS: BP 143/91
[2020-02-19 19:20] LABS: BASOPHILS % (AUTO) 0.4 %; EOSINOPHILS # (AUTO) 0.2 10^3/uL (0.0-0.7); EOSINOPHILS % (AUTO) 2.3 %; HGB - HEMOGLOBIN 13.4 g/dL (12.0-16.0); LYMPHOCYTES # (AUTO) 2.6 10^3/uL (1.5-3.5); LYMPHOCYTES % (AUTO) 32.7 %; MEAN CORPUSCULAR HEMOGLOBIN 29.3 pg (27.0-31.0); MEAN CORPUSCULAR HGB CONC 32.5 g/dL (32.0-36.0); MEAN CORPUSCULAR VOLUME 90.2 fL (81.0-99.0); MEAN PLATELET VOLUME 8.7 fL (7.9-10.8); MONOCYTES # (AUTO) 1.2 10^3/uL (0.0-1.0); MONOCYTES % (AUTO) 15.2 %; NEUTROPHILS # (AUTO) 3.8 10^3/uL (1.5-6.6); PLT - PLATELET COUNT 354 10^3/uL (130-450); RED BLOOD COUNT 4.57 10^6/uL (4.20-5.40); RED CELL DISTRIBUTION WIDTH 12.3 % (12.0-15.0); WHITE BLOOD COUNT 7.8 x10^3/uL (4.8-10.8)
[2020-02-19] MEDS ORDERED: LIDOCAINE PATCH 5% TOP STA (19:26)
[2020-02-19] MEDS ORDERED: IBUPROFEN 600 MG TABLET PO STA (19:26)
[2020-02-19] MEDS ORDERED: ACETAMINOPHEN 325 MG TABLET PO STA (19:26)
--- NOTE | 2020-02-19 19:27 | ED Physician Documentation ---
PD HPI BACK PAIN - Stated complaint Stated Complaint: TAIL BONE PX, FEMALE FU - Chief complaint Chief Complaint: Back Pain - History obtained from History obtained from: Patient - Additional information Additional information: 54-year-old woman presents with a couple of complaints, 1 is she is got urinary frequency with mild dysuria for a couple of months now. Also about 2 months ago she fell and injured her tailbone which is persistently painful. No fevers. No weight loss. 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 HEENT: Tonsil/Adenoidectomy, Other - Present Medications Home Medications: Ambulatory Orders Medication Instructions Recorded Confirmed lisinopriL [Lisinopril] 10 mg PO DAILY 08/06/18 01/13/19 Gabapentin [Neurontin] 100 mg PO QPM 01/13/19 01/13/19 diphenhydrAMINE [Benadryl] 100 mg PO HS 01/13/19 01/13/19 Cephalexin [Keflex] 500 mg PO Q6H #21 capsule 03/01/19 Chlorhexidine Gluconate [Peridex] 10 ml MM TID #118 mouthwash 03/01/19 Amox/Clav 875/125 [Augmentin] 1 each PO Q12H #20 tablet 03/07/19 Hydrocodone/Acetaminophen 1 - 2 each PO Q6H PRN #10 tablet 03/07/19 [Hydrocodon-Acetaminophen 5-325] Amox/Clav 875/125 [Augmentin] 1 each PO Q12H #20 tablet 05/30/19 Hydrocodone/Acetaminophen 1 - 2 each PO Q6H PRN #10 tablet 05/30/19 [Hydrocodon-Acetaminophen 5-325] Azithromycin 1 tab PO DAILY #4 tablet 07/13/19 Cefdinir 300 mg PO BID #20 capsule 07/13/19 Potassium Chloride 20 meq PO DAILY #3 tablet.er 07/13/19 Nitrofurantoin Monohyd/M-Cryst 100 mg PO BID #10 capsule 02/19/20 [Macrobid 100 mg Capsule] Oxycodone HCl/Acetaminophen 1 - 2 each PO Q6H PRN #14 tablet 02/19/20 [Percocet 5-325 mg Tablet] - Allergies Allergies/Adverse Reactions: Allergies Allergy/AdvReac Type Severity Reaction Status Date / Time codeine Allergy Unknown Verified 02/19/20 18:59 - Social History Does the pt smoke?: No Smoking Status: Never smoker Does the pt drink ETOH?: Yes Does the pt have substance abuse?: No - Immunizations Immunizations are current?: Yes - POLST Patient has POLST: No PD ED PE NORMAL - Vitals Vital signs reviewed: Yes - General General: Alert and oriented X 3, No acute distress - HEENT HEENT: PERRL, EOMI - Neck Neck: Supple, no meningeal sign, No bony TTP - Cardiac Cardiac: RRR, No murmur - Respiratory Respiratory: No respiratory distress, Clear bilaterally - Abdomen Abdomen: Non tender - Back Back: No spinal TTP, Other (Sacral tenderness, no visible injury, hips and lumbar spine are nontender.) - Extremities Extremities: No edema, No calf tenderness / cord - Neuro Neuro: Alert and oriented X 3, Normal speech Results - Vitals Vitals: Vital Signs - 24 hr 02/19/20 18:59 Temperature 36.5 C Heart Rate 91 Respiratory 18 Rate Blood Pressure 143/91 H O2 Saturation 98 Oxygen O2 Source Room air - Labs Labs: Laboratory Tests 02/19/20 02/19/20 02/19/20 19:14 19:14 20:14 WBC 7.8 RBC 4.57 Hgb 13.4 Hct 41.2 MCV 90.2 MCH 29.3 MCHC 32.5 RDW 12.3 Plt Count 354 MPV 8.7 Neut # (Auto) 3.8 Lymph # (Auto) 2.6 [place] # (Auto) 1.2 H Eos # (Auto) 0.2 Baso # (Auto) 0.0 Absolute Nucleated RBC 0.00 Nucleated RBC % 0.0 Sodium 138 Potassium 3.7 Chloride 102 Carbon Dioxide 27 Anion Gap 9.0 BUN 14 Creatinine 0.8 Estimated GFR (MDRD) 74 L Glucose 114 H Calcium 9.1 Total Bilirubin 0.4 AST 18 ALT 19 Alkaline Phosphatase 75 Total Protein 7.9 Albumin 4.0 Globulin 3.9 Albumin/Globulin Ratio 1.0 Lipase 45 Urine Color YELLOW Urine Clarity CLEAR Urine pH 6.0 Ur Specific [place] 1.025 Urine Protein NEGATIVE Urine Glucose (UA) NEGATIVE Urine Ketones NEGATIVE Urine Occult Blood SMALL H Urine Nitrite NEGATIVE Urine Bilirubin NEGATIVE Urine Urobilinogen 0.2 (NORMAL) Ur Leukocyte Esterase TRACE H Urine RBC 0-5 Urine WBC 6-10 H Ur Epithelial Cells RARE Transitional Ur Squamous Epith Cells MANY Squamous H Urine Bacteria Few Ur Microscopic Review INDICATED Urine Culture Comments NOT INDICATED - Rads (name of study) Sacrum/coccyx XR Radiology: EMP read contemporaneously (No fracture, L5/S1 facet joint hypertrophy) PD MEDICAL DECISION MAKING - ED course ED course: 54-year-old woman presents with multiple almost subacute complaints including a sacral injury which is still bothering her and also urinary frequency. She does have evidence of a bladder infection which we will treat with Macrobid. Sacral x-ray shows facet and arthritic changes without fracture. Departure - Departure Disposition: 01 Home, Self Care Clinical Impression: Sacroiliac pain, Cystitis Condition: Good Record reviewed to determine appropriate education?: Yes Instructions: ED UTI Cystitis Female, ED Low Back Pain Injury Prescriptions: Nitrofurantoin Monohyd/M-Cryst [Macrobid 100 mg Capsule] 100 mg PO BID #10 capsule Oxycodone HCl/Acetaminophen [Percocet 5-325 mg Tablet] 1 - 2 each PO Q6H PRN #14 tablet PRN Reason: pain Comments: Discuss physical therapy referral with your primary care physician regarding the sacroiliac pain. Return if worsening.
[2020-02-19 19:33] LABS: BILIRUBIN,TOTAL 0.4 mg/dL (0.2-1.0); CALCIUM 9.1 mg/dL (8.5-10.3); CREATININE 0.8 mg/dL (0.4-1.0); TOTAL PROTEIN 7.9 g/dL (6.7-8.2)
--- NOTE | 2020-02-19 20:03 | XRAY Report ---
PROCEDURE: Sacrum/Coccyx INDICATIONS: back inj TECHNIQUE: 3 views of the sacrum and coccyx acquired. COMPARISON: None. FINDINGS: Bones: No fractures identified. No dislocations. No suspicious bony lesions. Mild L5-S1 facet joint hypertrophy. Soft tissues: Visualized bowel gas pattern is normal. Phleboliths in the pelvis. No suspicious soft tissue densities. IMPRESSION: No fracture identified. L5-S1 facet joint hypertrophy. Reviewed by: Sammy Zavala MD on 02/19/2020 8:02 PM [facility] Approved by: Sammy Zavala MD on 02/19/2020 8:02 PM [facility] Station ID: [id number]
[2020-02-19 20:34] LABS: BILIRUBIN,URINE NEGATIVE (NEGATIVE); GLUCOSE, URINE (UA) NEGATIVE (NEGATIVE); KETONES,URINE (UA) NEGATIVE (NEGATIVE); LEUKOCYTE ESTERASE, URINE TRACE (NEGATIVE); NITRITE,URINE NEGATIVE (NEGATIVE); OCCULT BLOOD,URINE SMALL (NEGATIVE); PROTEIN,URINE NEGATIVE (NEGATIVE); UROBILINOGEN,URINE 0.2 (NORMAL) E.U./dL (NORMAL)
[2020-02-19 20:45] LABS: CLARITY,URINE CLEAR (CLEAR)
[2020-02-19 20:46] LABS: BACTERIA,URINE Few /HPF (None Seen); EPITHELIAL CELLS,UR RARE Transitional /HPF (<= Few); RBC,URINE 0-5 /HPF (0-5); SQUAMOUS EPITHELIAL CELL,UR MANY Squamous (<= Few)
[2020-02-19] MEDS ORDERED: NITROFURANTOIN MACRO 100 MG CAPSULE PO STA (21:09)
[2020-02-19] MEDS ORDERED: oxyCODONE/ACET 5/325 Prepack 4 PO STA (21:09)
== END 2020-02-19 21:17 | disposition home or self-care (01) ==
LOC: ED 18:57
DX: N30.90 Cystitis, unspecified without hematuria (principal); M53.3 Sacrococcygeal disorders, not elsewhere classified
CPT/HCPCS: 36415; 72220; 80053; 81001; 83690; 85025; 99284; A9270; 81003; 87086

== ENCOUNTER 2020-07-18 18:46 | Emergency (ER) | payer MEDICAID ==
[2020-07-18] MEDS ORDERED: SODIUM CHLORIDE 0.9% 1,000 ML IV STA (19:05)
[2020-07-18] MEDS ORDERED: MORPHINE 2 MG/ML CARPUJECT IVP STA (19:05)
[2020-07-18] MEDS ORDERED: ONDANSETRON 4 MG/2 ML VIAL IVP STA (19:05)
--- NOTE | 2020-07-18 19:08 | ED Physician Documentation ---
PD HPI ABD PAIN - Stated complaint Stated Complaint: ABD PX,NAUSEA - Chief complaint Chief Complaint: Abd Pain - History obtained from History obtained from: Patient - History of Present Illness Timing - onset: How many weeks ago (1) Timing - duration: Weeks (1) Timing - details: Gradual onset Pain level max: 8 Pain level now: 8 Quality: Aching, Pain Location: Epigastric Radiation: Other (mid back) Improved by: Other (belching) Worsened by: Eating Associated symptoms: Nausea, Constipation. No: Fever, Vomiting, Hematemesis, Diarrhea, Melena, Hematochezia, Dysuria, Hematuria Similar symptoms before: Has not had sx before Recently seen: Not recently seen - Additional information Additional information: states only medication is lisinopril. H/o cholecystecomy several years ago. no history of ulcers or gastritis. Patient denies any alcohol, drug or tobacco use. Review of Systems Ten Systems: 10 systems reviewed and negative Constitutional: denies: Fever, Chills Throat: denies: Sore throat Cardiac: denies: Chest pain / pressure, Palpitations Respiratory: denies: Dyspnea, Cough : denies: Dysuria, Frequency, Hesitancy Skin: denies: Rash Musculoskeletal: denies: Neck pain, Back pain Neurologic: denies: Headache PD PAST MEDICAL HISTORY - Past Medical History Cardiovascular: High cholesterol, Murmur Respiratory: None Endocrine/Autoimmune: None GI: None : Nocturia HEENT: Chronic sinusitis Psych: Anxiety Musculoskeletal: Osteoarthritis, Other Derm: None - Past Surgical History Past Surgical History: No General: Cholecystectomy, Colonoscopy, Other 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 HEENT: Tonsil/Adenoidectomy, Other - Present Medications Home Medications: Ambulatory Orders Medication Instructions Recorded Confirmed lisinopriL [Lisinopril] 10 mg PO DAILY 08/06/18 07/18/20 Esomeprazole Magnesium [Nexium] 20 mg PO DAILY #30 cap 07/18/20 Famotidine [Pepcid] 20 mg PO BID #60 tablet 07/18/20 HYDROcod/ACETAM 5/325 [[place] 5/325] 1 - 2 ea PO Q6H PRN #14 tablet 07/18/20 Ondansetron Odt [Zofran] 4 mg TL Q6H PRN #10 tablet 07/18/20 Sucralfate [Carafate] 1 gm PO ACHS #60 tablet 07/18/20 - Allergies Allergies/Adverse Reactions: Allergies Allergy/AdvReac Type Severity Reaction Status Date / Time codeine Allergy Unknown Verified 07/18/20 18:49 - Social History Does the pt smoke?: No Smoking Status: Never smoker Does the pt drink ETOH?: Yes Does the pt have substance abuse?: No - Immunizations Immunizations are current?: Yes - POLST Patient has POLST: No PD ED PE NORMAL - Vitals Vital signs reviewed: Yes - General General: Alert and oriented X 3, No acute distress - HEENT HEENT: Moist mucous membranes - Neck Neck: Supple, no meningeal sign - Cardiac Cardiac: RRR - Respiratory Respiratory: No respiratory distress, Clear bilaterally - Abdomen Abdomen: Normal bowel sounds, Soft, Non distended, Other (Tender palpation epigastric, no peritoneal signs.) - Back Back: No CVA TTP - Derm Derm: Warm and dry - Extremities Extremities: No edema - Neuro Neuro: Alert and oriented X 3 - Psych Psych: Normal mood, Normal affect Results - Vitals Vitals: Vital Signs - 24 hr 07/18/20 07/18/20 18:49 20:52 Temperature 36.5 C Heart Rate 100 89 Respiratory 16 16 Rate Blood Pressure 150/73 H 130/93 H O2 Saturation 99 99 Oxygen O2 Source Room air - Labs Labs: Laboratory Tests 07/18/20 07/18/20 07/18/20 18:57 19:16 19:16 WBC 8.4 RBC 4.76 Hgb 13.9 Hct 43.4 MCV 91.2 MCH 29.2 MCHC 32.0 RDW 12.4 Plt Count 371 MPV 8.8 Neut # (Auto) 4.4 Lymph # (Auto) 2.5 [place] # (Auto) 1.3 H Eos # (Auto) 0.1 Baso # (Auto) 0.0 Absolute Nucleated RBC 0.00 Nucleated RBC % 0.0 Sodium 137 Potassium 3.5 Chloride 103 Carbon Dioxide 23 Anion Gap 11.0 BUN 11 Creatinine 0.9 Estimated GFR (MDRD) 65 L Glucose 102 H Calcium 9.9 Total Bilirubin 0.7 AST 21 ALT 18 Alkaline Phosphatase 69 Total Protein 8.0 Albumin 4.6 Globulin 3.4 Albumin/Globulin Ratio 1.4 Lipase 31 Urine Color YELLOW Urine Clarity HAZY Urine pH 6.0 Ur Specific [place] 1.025 Urine Protein NEGATIVE Urine Glucose (UA) NEGATIVE Urine Ketones 15 H Urine Occult Blood SMALL H Urine Nitrite NEGATIVE Urine Bilirubin NEGATIVE Urine Urobilinogen 0.2 (NORMAL) Ur Leukocyte Esterase TRACE H Urine RBC 6-10 H Urine WBC 6-10 H Ur Squamous Epith Cells MOD Squamous H Urine Bacteria Moderate H Urine Mucus Few Strands Ur Microscopic Review INDICATED Urine Culture Comments NOT INDICATED - Rads (name of study) CT abd/pelvis Radiology: Prelim report reviewed, EMP read contemporaneously, See rad report (no acute abnormality) PD MEDICAL DECISION MAKING - ED course Complexity details: reviewed results, re-evaluated patient, considered differential, d/w patient ED course: No significant lab abnormalities. Patient does feel mildly better with a GI cocktail. She is still quite tender in the epigastrium, therefore we will proceed with a CT scan. No acute findings on CT scan. We will have her follow- up with her doctor for further care and treat her as gastritis versus GERD versus ulcer. Patient counseled regarding signs and symptoms for which I believe and urgent re-evaluation would be necessary. Patient with good understanding of and agreement to plan and is comfortable going home at this time This document was made in part using voice recognition software. While efforts are made to proofread this document, sound alike and grammatical errors may occur. IMPRESSION: 1. CT abdomen and pelvis without acute abnormalities to explain patient's symptoms. 2. Small hiatal hernia. 3. Colonic diverticulosis without acute diverticulitis. 4. Status post cholecystectomy. Departure - Departure Disposition: 01 Home, Self Care Clinical Impression: Gastritis Qualifiers: Gastritis type: unspecified gastritis Chronicity: acute Gastritis bleeding: without bleeding Qualified Code(s): K29.00 - Acute gastritis without bleeding Abdominal pain Qualifiers: Abdominal location: epigastric Qualified Code(s): R10.13 - Epigastric pain Condition: Good Instructions: ED PUD Vs Gastritis Follow-Up: your,doctor in 1 week [Other] Prescriptions: Sucralfate [Carafate] 1 gm PO ACHS #60 tablet Esomeprazole Magnesium [Nexium] 20 mg PO DAILY #30 cap HYDROcod/ACETAM 5/325 [[place] 5/325] 1 - 2 ea PO Q6H PRN #14 tablet PRN Reason: Pain Famotidine [Pepcid] 20 mg PO BID #60 tablet Ondansetron Odt [Zofran] 4 mg TL Q6H PRN #10 tablet PRN Reason: Nausea / Vomiting Comments: Follow-up with your doctor for further care. Return if you worsen. Drink plenty of fluids at home. Eat a very bland diet. Avoid fried foods, spicy foods, alcohol, anti-inflammatory medication such as Motrin. Do not drink alcohol or drive while on narcotic pain medicine. Note that many narcotic pain relievers also contain tylenol/acetaminophen. Please ensure that your total dose of acetaminophen from all sources does not exceed 3 grams (3000mg) per day. You may constipated on this medication, take a stool softener such as "Colace" twice a day while you are on it. Also recommend a loig-pgn-tiavmvr laxative such as senna or MiraLAX any day that you do not have a bowel movement. If you received narcotic pain medication in the emergency department, do not drive or operate machinery for the next 24 hours.
[2020-07-18 19:17] LABS: GLUCOSE, URINE (UA) NEGATIVE (NEGATIVE); KETONES,URINE (UA) 15 mg/dL (NEGATIVE); LEUKOCYTE ESTERASE, URINE TRACE (NEGATIVE); NITRITE,URINE NEGATIVE (NEGATIVE); OCCULT BLOOD,URINE SMALL (NEGATIVE); PROTEIN,URINE NEGATIVE (NEGATIVE); UROBILINOGEN,URINE 0.2 (NORMAL) E.U./dL (NORMAL)
[2020-07-18 19:26] LABS: BASOPHILS % (AUTO) 0.5 %; EOSINOPHILS # (AUTO) 0.1 10^3/uL (0.0-0.7); EOSINOPHILS % (AUTO) 1.1 %; HCT - HEMATOCRIT 43.4 % (37.0-47.0); HGB - HEMOGLOBIN 13.9 g/dL (12.0-16.0); LYMPHOCYTES # (AUTO) 2.5 10^3/uL (1.5-3.5); LYMPHOCYTES % (AUTO) 29.9 %; MEAN CORPUSCULAR HEMOGLOBIN 29.2 pg (27.0-31.0); MEAN CORPUSCULAR VOLUME 91.2 fL (81.0-99.0); MEAN PLATELET VOLUME 8.8 fL (7.9-10.8); MONOCYTES # (AUTO) 1.3 10^3/uL (0.0-1.0); MONOCYTES % (AUTO) 15.4 %; NEUTROPHILS # (AUTO) 4.4 10^3/uL (1.5-6.6); NEUTROPHILS % (AUTO) 52.9 %; PLT - PLATELET COUNT 371 10^3/uL (130-450); RED BLOOD COUNT 4.76 10^6/uL (4.20-5.40); RED CELL DISTRIBUTION WIDTH 12.4 % (12.0-15.0); WHITE BLOOD COUNT 8.4 x10^3/uL (4.8-10.8)
[2020-07-18 19:32] LABS: BACTERIA,URINE Moderate /HPF (None Seen); BILIRUBIN,URINE NEGATIVE (NEGATIVE); CLARITY,URINE HAZY (CLEAR); ICTOTEST,URINE NEGATIVE; MUCUS,URINE Few Strands; SQUAMOUS EPITHELIAL CELL,UR MOD Squamous (<= Few)
[2020-07-18 19:40] LABS: ALBUMIN 4.6 g/dL (3.2-5.5); ALBUMIN/GLOBULIN RATIO 1.4 (1.0-2.2); BILIRUBIN,TOTAL 0.7 mg/dL (0.2-1.0); CALCIUM 9.9 mg/dL (8.5-10.3); CREATININE 0.9 mg/dL (0.4-1.0); POTASSIUM 3.5 mmol/L (3.5-5.0)
[2020-07-18] MEDS ORDERED: LIDOCAINE VISCOUS 2% 15 ML UDC MM STA (20:01)
[2020-07-18] MEDS ORDERED: MAG HYDROX/AL HYDROX/SIMETH 30 ML UDC PO STA (20:01)
[2020-07-18] MEDS ORDERED: SUCRALFATE 1 GM/10 ML UDC PO STA (20:01)
[2020-07-18] MEDS ORDERED: FAMOTIDINE 20 MG TABLET PO STA (20:01)
[2020-07-18] MEDS ORDERED: PANTOPRAZOLE 40 MG VIAL IVP STA (20:37)
[2020-07-18] MEDS ORDERED: IOPAMIDOL-300 100 ML VIAL ONE (20:40)
[2020-07-18] MEDS ORDERED: IOPAMIDOL-300 100 ML VIAL IVP ONE (21:15)
--- NOTE | 2020-07-18 21:52 | CT Report ---
PROCEDURE: Abdomen/Pelvis W INDICATIONS: upper abd pain CONTRAST: IV CONTRAST: Isovue 300 ml: 100 PO CONTRAST: *NO PO CONTRAST TECHNIQUE: After the administration of weight appropriate dose of intravenous contrast, 5 mm thick sections acqu ired from the diaphragms to the symphysis. 5 mm thick coronal and sagittal reformats were acquired. For radiation dose reduction, the following was used: automated exposure control, adjustment of mA and/or kV according to patient size. COMPARISON: None. FINDINGS: Image quality: Excellent. ABDOMEN: Lung bases: Lung bases are clear. Heart size is normal. Small hiatal hernia. Solid organs: Liver and spleen are normal in size and enhancement. Gallbladder is surgically absent . Biliary system is non dilated. Pancreas enhances normally. No adrenal nodules. Kidneys demonstr ate normal size and enhancement, without hydronephrosis. Peritoneum and bowel: Scattered colonic diverticulosis without acute diverticulitis. Bowel loops dem onstrate normal wall thickness and caliber. No free fluid or air. Nodes and vessels: No retroperitoneal or mesenteric adenopathy by size criteria. Aorta and inferior vena cava are normal in size. Miscellaneous: No ventral hernias. Very small fat-containing umbilical hernia without acute inflamma tion. PELVIS: Genitourinary: Bladder wall thickness is normal for degree of bladder distention.. Miscellaneous: No inguinal hernias or adenopathy. Bones: No suspicious bony lesions. No acute vertebral body compression fractures. Multilevel lumbar spondylosis. IMPRESSION: 1. CT abdomen and pelvis without acute abnormalities to explain patient's symptoms. 2. Small hiatal hernia. 3. Colonic diverticulosis without acute diverticulitis. 4. Status post cholecystectomy. Reviewed by: Frank Hsu MD on 07/18/2020 9:50 PM PDT Approved by: Frank Hsu MD on 07/18/2020 9:50 PM PDT Station ID: [id number]
[2020-07-18 21:58] VITALS: BP 130/78
== END 2020-07-18 22:04 | disposition home or self-care (01) ==
LOC: ED 18:46
DX: K29.00 Acute gastritis without bleeding (principal); K44.9 Diaphragmatic hernia without obstruction or gangrene
CPT/HCPCS: 36415; 74177; 80053; 81001; 83690; 85025; 96374; 96375; 99284; A9270; Q9967; 81003; 87086

== ENCOUNTER 2020-07-31 12:53 | Emergency (ER) | payer MEDICAID ==
[2020-07-31 13:00] VITALS: BP 139/60
--- NOTE | 2020-07-31 13:33 | XRAY Report ---
PROCEDURE: Wrist 3 View LT INDICATIONS: wrist pain TECHNIQUE: 3 views of the wrist were acquired. COMPARISON: None FINDINGS: Bones: No fractures or dislocations. No suspicious bony lesions. Focal degenerative change is seen involving the carpometacarpal joint, with milder degenerative changes seen elsewhere. Soft tissues: No suspicious soft tissue calcifications. IMPRESSION: Degenerative changes, without acute plain film abnormality. If it would be helpful for clinical management decision making, please consider a dedicated, schedule d wrist MRI for further evaluation (assuming that there is no contraindication). This should be perf ormed according to the arthrogram protocol, if there is strong clinical concern for a ligamentous abn ormality. Reviewed by: Octavio Ricardo MD on 07/31/2020 12:32 PM [facility] Approved by: Octavio Ricardo MD on 07/31/2020 12:32 PM [facility] Station ID: [id number]
--- NOTE | 2020-07-31 14:13 | ED Physician Documentation ---
History of Present Illness - Stated complaint Stated Complaint: L WRIST INJ - Chief complaint Chief Complaint: Ext Problem - History obtained from History obtained from: Patient - Additonal information Additional information: 54-year-old woman with history of osteoarthritis p/w L wrist pain after her son's dog jumped on her wrist with his full weight this morning. Pain was sudden in onset, throbbing, constant, radiating up the forearm and down to the hand, worse with range of motion of the wrist, associated with mild swelling. No sensory or motor deficits. 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 HEENT: Tonsil/Adenoidectomy, Other - Present Medications Home Medications: Ambulatory Orders Medication Instructions Recorded Confirmed lisinopriL [Lisinopril] 10 mg PO DAILY 08/06/18 07/18/20 Esomeprazole Magnesium [Nexium] 20 mg PO DAILY #30 cap 07/18/20 Famotidine [Pepcid] 20 mg PO BID #60 tablet 07/18/20 HYDROcod/ACETAM 5/325 [[place] 5/325] 1 - 2 ea PO Q6H PRN #14 tablet 07/18/20 Ondansetron Odt [Zofran] 4 mg TL Q6H PRN #10 tablet 07/18/20 Sucralfate [Carafate] 1 gm PO ACHS #60 tablet 07/18/20 - Allergies Allergies/Adverse Reactions: Allergies Allergy/AdvReac Type Severity Reaction Status Date / Time codeine Allergy Unknown Verified 07/31/20 12:57 - Social History Does the pt smoke?: No Smoking Status: Never smoker Does the pt drink ETOH?: Yes Does the pt have substance abuse?: No - Immunizations Immunizations are current?: Yes - POLST Patient has POLST: No PD ED PE NORMAL - Vitals Vital signs reviewed: Yes - General General: Alert and oriented X 3, No acute distress, Well developed/nourished - HEENT HEENT: Atraumatic, PERRL, EOMI - Neck Neck: Supple, no meningeal sign - Extremities Extremities: No deformity, Other (L distal radius ttp. discomfort with rom of the wrist. nontender to carpals or metacarpals or fingers. ) - Neuro Neuro: Alert and oriented X 3 - Psych Psych: Normal mood, Normal affect Results - Vitals Vitals: Vital Signs - 24 hr 07/31/20 12:57 Temperature 36.6 C Heart Rate 90 Respiratory 16 Rate Blood Pressure 139/60 H O2 Saturation 98 Oxygen O2 Source Room air PD MEDICAL DECISION MAKING - ED course ED course: 54-year-old woman presented with sudden onset pain after her dog jumped on her wrist. X-rays show chronic osteoarthritis but no acute injury. She does have bony tenderness on exam so we placed a splint and had her follow-up with orthopedics in 1 week. Departure - Departure Disposition: 01 Home, Self Care Clinical Impression: Wrist pain Condition: Good Instructions: ED RICE Follow-Up: Zachary Schroeder MD [Provider Admit Priv/Credential] - Comments: You were seen in the emergency department for Pain in the wrist after a dog jumped on you. Your x-rays did not show a break in the bone, but you do have tenderness along the base of the radius, a bone in your forearm. For this reason, we put you in a splint and I can have you follow-up with Dr. Schroeder at our orthopedic clinic in 1 week. Please return to the emergency department if you develop any new or worsening symptoms or have other concerns. Take tylenol or acetaminophen 650mg every 6 hours as needed for pain.
== END 2020-07-31 14:38 | disposition home or self-care (01) ==
LOC: ED 12:53
DX: M25.532 Pain in left wrist (principal)
CPT/HCPCS: 99282; 99283